=== PATIENT | male | born 1965 | race Caucasian/White ===

== ENCOUNTER → 2022-09-11 11:31 | Outpatient (RCR) | payer OTHER, MEDICAID, SELFPAY ==
--- NOTE | 2021-05-30 15:16 | PT.OIE ---
Current Diagnoses Other chronic pain (05/30/21) Pain in left shoulder (05/30/21) Abnormal posture (05/30/21) Visit Care Team Role Provider Type Jon Fu MD Attending Provider Non-Staff Primary Care Provider Referring Provider Specialty: Family Practice Address: [address] , [place], [address] Email: Physical Therapy Initial Evaluation PT-OP-A Visit Information Start: 05/30/21 12:36 Freq: Status: Active Protocol: Document 05/30/21 14:30 AW (Rec: 05/30/21 17:36 AW [email or web address]) Out-Patient Physical Therapy Visit Information Visit Information Visit Type Initial Evaluation Visit Start Time 13:45 Visit Stop Time 14:30 Total Visit Minutes 45 Visit Number 1 Number of COMPUGRAPH OPERATOR Visits 0 Evaluation Information Evaluation Date 05/30/21 PT-OP-B Current Condition Start: 05/30/21 12:36 Freq: Status: Active Protocol: Document 05/30/21 14:30 AW (Rec: 05/30/21 12:46 AW [email or web address]) Current Condition History of Current Condition Onset Date couple of months Current Complaints left shoulder pain, low back pain History of Current Condition Russ reports low back pain for the past few months which is worse on the left side and seems fairly irritable to him. He wakes up in pain. Rest and ice help. 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 He is also here for left shoulder pain which has been bothering him for a while. He has history of right A/C separation which is visible but no longer causes him pain. Left shoulder pain has been disturbing his sleep. He hurts more on the back of his shoulder. He can not throw anything or cast a fishing line. He has been having trouble getting dressed since his shoulder hurts when his arm his behind his back. He denies trauma Prior Treatments and Tests - Prior PT for right shoulder with good outcomes Future Testing and Treatments Planned - Referral to sleep medicine for CHARLI Developmental History Developmental History History NSTEMI, PTSD Treatment Goals Patient/Caregiver Goals Pt would like to be able to sleep on left side, to be able to throw a ball, to be able to cast a fishing line with left hand, and be able to dress himself with less pain. PT-OP-C Subjective Start: 05/30/21 12:36 Freq: Status: Active Protocol: Document 05/30/21 14:30 AW (Rec: 05/30/21 17:36 AW [email or web address]) OP-PT Subjective Patient Comments Patient Comments I'd like to be able to cast a fishing line or throw a ball without pain. Patient Questionnaires Quick Dash- Upper Extremity Quick Dash UE Score 30 Quick Dash UE Impairment 20 to 39% Impaired (Score 20- 39) OP-PT Pain Assessment Pain Assessment Grid Paper Pain Assessment Grid Completed Yes: Scanned to EMR PT-OP-F Manual Assessment Start: 05/30/21 12:36 Freq: Status: Active Protocol: Document 05/30/21 14:30 AW (Rec: 05/30/21 17:49 AW [email or web address]) Manual Assessments Soft Tissue Assessment Soft Tissue Mobility Assessment Moderate density and trigger points appreciable in left infraspinatus, teres minor. Increased density bilateral upper traps. Joint Mobility Assessment Joint Mobility Assessment Posterior and inferior GH glides similar side to side without appreciable restriction. PT-OP-J Posture/Palpation/Skin Start: 05/30/21 12:36 Freq: Status: Active Protocol: Document 05/30/21 14:30 AW (Rec: 05/30/21 17:49 AW [email or web address]) Posture Evaluation Position Sitting Evaluation View Lateral Head/C-Spine Posture Forward Head Shoulder Posture (L) Rounded,(R) Rounded Scapula Posture (L) Protracted,(R) Protracted Arm Posture (L) Internally Rotated,(R) Internally Rotated PT-OP-K Range of Motion Start: 05/30/21 12:36 Freq: Status: Active Protocol: Document 05/30/21 14:30 AW (Rec: 05/30/21 17:49 AW [email or web address]) Shoulder Goniometric Range of Motion Shoulder Left Active Testing Position Sitting Flexion 143 Extension 40 Abduction 141 External Rotation at 0 degrees Abduction 47 Internal Rotation Behind Back (text) L4 midline Right Active Testing Position Sitting Flexion 158 Extension 40 Abduction 155 External Rotation at 0 degrees Abduction 70 Internal Rotation Behind Back (text) T7 midline Elbow/Forearm Range of Motion Elbow/Forearm ROM Limitations Comments All elbow ROM WNL PT-OP-L Special Tests Start: 05/30/21 12:36 Freq: Status: Active Protocol: Document 05/30/21 14:30 AW (Rec: 05/30/21 17:49 AW [email or web address]) Special Tests Cervical Spine Special Tests Spurling's Test Test Results negative bilaterally Shoulder Special Tests Cochran Kyle Impingement Test Results positive left Infraspinatus MMT Test Results positive left Comments Vague pain with resisted infraspinatus testing on left. No pain on right. Painful Arc Test Results postive left Comments Pain reproduced 80-110 degrees abduction Drop Arm Rotator Cuff Test Results pt able to hold position without pain PT-OP-M Strength Start: 05/30/21 12:36 Freq: Status: Active Protocol: Document 05/30/21 14:30 AW (Rec: 05/30/21 17:49 AW [email or web address]) Scapula Strength Scapula Manual Muscle Testing bilateral Elevation (C4) 5 Normal Adduction 4+ Good+ Abduction 4+ Good+ Depression 4 Good Shoulder Strength Shoulder Manual Muscle Testing Left Flexion 4+ Good+ Extension 5 Normal Abduction (C5) 4+ Good+ External Rotation 4 Good Internal Rotation 4+ Good+ Comments Resisted flexion, abduction, and ER reproduce pain. Right Flexion 5 Normal Extension 5 Normal Abduction (C5) 5 Normal External Rotation 5 Normal Internal Rotation 5 Normal PT-OP-Q Treatments Start: 05/30/21 12:36 Freq: Status: Active Protocol: Document 05/30/21 14:30 AW (Rec: 05/30/21 17:54 AW [email or web address]) Therapeutic Exercises Sitting Exercises UT stretch Sitting Exercise Name UT stretch Side bilateral Reps/Minutes 30 SH x 2 Comments cued posture, ear toward ceiling cervical retraction Sitting Exercise Name cervical retraction Reps/Minutes x10 Comments cued for upright posture, scap retraction scapular retraction Sitting Exercise Name scapular retraction Side bilateral Reps/Minutes x15 Comments cued neutral spine as pt tends to extend at T/L junction PT-OP-T Assessment and Plan Start: 05/30/21 12:36 Freq: Status: Active Protocol: Document 05/30/21 14:30 AW (Rec: 05/30/21 18:07 AW [email or web address]) Physical Therapy Assessment Rehab Potential Rehabilitation Potential Excellent Evaluation Complexity Number of Personal Factors/Comorbidities 1-2 Number of Body Systems Impaired 1-2 Clinical Presentation at Evaluation Stable Impairments Impairments Functional Activities,Pain, Posture,ROM,Soft Tissue Mobility,Strength Goals Four Impairment left shoulder pain Short Term Goal (STG) Pt will improve left shoulder internal rotation ROM to L1 or higher (at midline) without increase in baseline pain. STG Duration 4 weeks - 06/27/21 Tie Man Goal (LTG) Pt will throw a ball or cast a fishing reel with left arm without increase in baseline pain for return to recreational activities. LTG Duration 2 months - 08/04/21 Three Impairment QuickDASH Intermediate Goal (LTG) Pt will improve QuickDASH from 30% impairment to 15% or less as a measure of improvement in daily activities. LTG Duration 2 months - 08/04/21 Two Impairment ROM Tie Man Goal (LTG) Pt will achieve active ROM of left shoulder equal to that of right shoulder for improvement in ADL performance . LTG Duration 2 months - 08/04/21 One Impairment lacks HEP Short Term Goal (STG) Pt will be independent with HEP to support therapy services provided in clinic. STG Duration 4 weeks - 06/27/21 Tie Man Goal (LTG) Pt will be independent with HEP for postural education and pain management for left shoulder. LTG Duration 2 months - 08/04/21 Assessment Summary Assessment Russ is a left-hand dominant 56 yo man who attends outpatient physical therapy with complaints of left shoulder pain and low back pain. His current referral is for shoulder only and pt understands he will need his referring provider to add low back pain to referral for more specific treatment. Pt presents with ROM limitations, positive painful arc, painful external rotation MMT, and positive Cochran-Kyle suggestive of impingement syndrome. Pt would benefit from physical therapy to address these impairments, to prevent further injury, and to promote full return to work and recreational activities. Physical Therapy Plan Frequency and Duration Frequency of Treatment 1-2x/week Duration of Treatment 2 months Plan of Care Start Date 05/30/21 Plan of Care End Date 08/04/21 Therapeutic Interventions Therapeutic Interventions Home Exercise Program,Joint Mobilizations,Manual Therapy, Neuromuscular Re-education, Patient/Caregiver Education, Self-Care/Home Management,Soft Tissue Mobilization,Taping, Therapeutic Activities, Therapeutic Exercises Modalities Cold Pack/Ice Massage,Electric Stimulation,Hot Packs Next Visit Focus/Plan Next Note Type Treatment Note Next Visit Plan assess lumbar spine and revise POC if authorization is updated; review initial HEP; introduce pec stretch, AAROM, isometric shoulder strengthening; reinforce activity modification
--- NOTE | 2021-05-30 15:17 | PT.OPPOC ---
Physical, Occupational & Speech Therapy At [facility] Current Diagnoses Other chronic pain (05/30/21) Pain in left shoulder (05/30/21) Abnormal posture (05/30/21) Visit Care Team Role Provider Type Jon Fu MD Attending Provider Non-Staff Primary Care Provider Referring Provider Specialty: Family Practice Address: [address] [place] [address], [place], [address] Email: Plan Of Care PT-OP-T Assessment and Plan Start: 05/30/21 12:36 Freq: Status: Active Protocol: Document 05/30/21 14:30 AW (Rec: 05/30/21 18:07 AW [email or web address]) Physical Therapy Assessment Rehab Potential Rehabilitation Potential Excellent Evaluation Complexity Number of Personal Factors/Comorbidities 1-2 Number of Body Systems Impaired 1-2 Clinical Presentation at Evaluation Stable Impairments Impairments Functional Activities,Pain, Posture,ROM,Soft Tissue Mobility,Strength Goals Four Impairment left shoulder pain Short Term Goal (STG) Pt will improve left shoulder internal rotation ROM to L1 or higher (at midline) without increase in baseline pain. STG Duration 4 weeks - 06/27/21 Thermal Cutter Helper Goal (LTG) Pt will throw a ball or cast a fishing reel with left arm without increase in baseline pain for return to recreational activities. LTG Duration 2 months - 08/04/21 Three Impairment QuickDASH Long-Term Goal (LTG) Pt will improve QuickDASH from 30% impairment to 15% or less as a measure of improvement in daily activities. LTG Duration 2 months - 08/04/21 Two Impairment ROM Thermal Cutter Helper Goal (LTG) Pt will achieve active ROM of left shoulder equal to that of right shoulder for improvement in ADL performance . LTG Duration 2 months - 08/04/21 One Impairment lacks HEP Short Term Goal (STG) Pt will be independent with HEP to support therapy services provided in clinic. STG Duration 4 weeks - 06/27/21 Thermal Cutter Helper Goal (LTG) Pt will be independent with HEP for postural education and pain management for left shoulder. LTG Duration 2 months - 08/04/21 Assessment Summary Assessment Russ is a left-hand dominant 56 yo man who attends outpatient physical therapy with complaints of left shoulder pain and low back pain. His current referral is for shoulder only and pt understands he will need his referring provider to add low back pain to referral for more specific treatment. Pt presents with ROM limitations, positive painful arc, painful external rotation MMT, and positive Cochran-Kyle suggestive of impingement syndrome. Pt would benefit from physical therapy to address these impairments, to prevent further injury, and to promote full return to work and recreational activities. Physical Therapy Plan Frequency and Duration Frequency of Treatment 1-2x/week Duration of Treatment 2 months Plan of Care Start Date 05/30/21 Plan of Care End Date 08/04/21 Therapeutic Interventions Therapeutic Interventions Home Exercise Program,Joint Mobilizations,Manual Therapy, Neuromuscular Re-education, Patient/Caregiver Education, Self-Care/Home Management,Soft Tissue Mobilization,Taping, Therapeutic Activities, Therapeutic Exercises Modalities Cold Pack/Ice Massage,Electric Stimulation,Hot Packs Next Visit Focus/Plan Next Note Type Treatment Note Next Visit Plan assess lumbar spine and revise POC if authorization is updated; review initial HEP; introduce pec stretch, AAROM, isometric shoulder strengthening; reinforce activity modification Plan of Care Dates Plan of Care Start Date 05/30/21 Plan of Care End Date 08/04/21 Electronically Signed by: Kristen Valentine PT 05/31/21 0634 Please Sign and Return: I have reviewed this Plan of Care and certify that the skilled therapy services above are required to meet the patient?s needs. Physician Signature Date Printed Name and Credentials Clinical Instructor Signature Printed Name and Credentials
--- NOTE | 2021-06-01 17:30 | PT.OPPOC ---
Physical, Occupational & Speech Therapy At [facility] Current Diagnoses Other chronic pain (06/01/21) Pain in left shoulder (06/01/21) Abnormal posture (06/01/21) Visit Care Team Role Provider Type Jon Fu MD Attending Provider Non-Staff Primary Care Provider Referring Provider Specialty: Family Practice Address: [address] [place] [address], [place], [address] Email: Plan Of Care PT-OP-T Assessment and Plan Start: 05/30/21 12:36 Freq: Status: Active Protocol: Document 06/01/21 14:30 AW (Rec: 06/01/21 17:30 AW [email or web address]) Physical Therapy Assessment Rehab Potential Rehabilitation Potential Excellent Evaluation Complexity Number of Personal Factors/Comorbidities 1-2 Number of Body Systems Impaired 1-2 Clinical Presentation at Evaluation Stable Impairments Impairments Balance,Functional Activities, Gait,Pain,Posture,ROM,Soft Tissue Mobility,Strength Goals Seven Impairment sit to stand Short Term Goal (STG) Pt will complete 5 Time Sit to felt finisher 14 seconds or less without UE and without increase in baseline pain. STG Duration 4 weeks - 06/27/21 Intellectual Property Paralegal Goal (LTG) Pt will complete 15 reps in 30 Second Sit to Stand Test without UE and without increase in baseline pain. LTG Duration 2 months - 08/04/21 Six Impairment low back pain Short Term Goal (STG) Pt will tolerate sitting 60 minutes to improve driving tolerance. 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 LTG Duration 2 months - 08/04/21 Five Impairment balance Short Term Goal (STG) Pt will improve SLS to 30 seconds bilaterally STG Duration 4 weeks - 06/27/21 Four Impairment left shoulder pain Short Term Goal (STG) Pt will improve left shoulder internal rotation ROM to L1 or higher (at midline) without increase in baseline pain. STG Duration 4 weeks - 06/27/21 Mcfp Goal (LTG) Pt will throw a ball or cast a fishing reel with left arm without increase in baseline pain for return to recreational activities. LTG Duration 2 months - 08/04/21 Three Impairment QuickDASH Mcfp Goal (LTG) Pt will improve QuickDASH from 30% impairment to 15% or less as a measure of improvement in daily activities. LTG Duration 2 months - 08/04/21 Two Impairment ROM Mcfp Goal (LTG) Pt will achieve active ROM of left shoulder equal to that of right shoulder for improvement in ADL performance . LTG Duration 2 months - 08/04/21 One Impairment lacks HEP Short Term Goal (STG) Pt will be independent with HEP to support therapy services provided in clinic. STG Duration 4 weeks - 06/27/21 Mcfp Goal (LTG) Pt will be independent with HEP for postural education and pain management for left shoulder. LTG Duration 2 months - 08/04/21 Assessment Summary Assessment Assessed for back pain today and introduced gentle lumbar ROM and core stability. Updated plan of care to include back pain goals. Pt tends to over-exert with all exercises and will need vigilance in this regard. Physical Therapy Plan Frequency and Duration Frequency of Treatment 1-2x/week Duration of Treatment 2 months Plan of Care Start Date 05/30/21 Plan of Care End Date 08/04/21 Therapeutic Interventions Therapeutic Interventions Balance Training,Gait Training ,Home Exercise Program,Joint Mobilizations,Manual Therapy, Neuromuscular Re-education, Patient/Caregiver Education, Self-Care/Home Management,Soft Tissue Mobilization,Taping, Therapeutic Activities, Therapeutic Exercises Modalities Cold Pack/Ice Massage,Electric Stimulation,Hot Packs Next Visit Focus/Plan Next Note Type Treatment Note Next Visit Plan review initial HEP; introduce pec stretch, AAROM, isometric shoulder strengthening; reinforce activity modification Plan of Care Dates Plan of Care Start Date 05/30/21 Plan of Care End Date 08/04/21 Electronically Signed by: Kristen Valentine PT 06/01/21 [id number] Please Sign and Return: I have reviewed this Plan of Care and certify that the skilled therapy services above are required to meet the patient?s needs. Physician Signature Date Printed Name and Credentials Clinical Instructor Signature Printed Name and Credentials
--- NOTE | 2021-06-01 17:31 | PT.OTN ---
Current Diagnoses Other chronic pain (06/01/21) Pain in left shoulder (06/01/21) Abnormal posture (06/01/21) Physical Therapy Treatment Note PT-OP-A Visit Information Start: 05/30/21 12:36 Freq: Status: Active Protocol: Document 06/01/21 13:42 AW (Rec: 06/01/21 14:32 AW [id number]) Out-Patient Physical Therapy Visit Information Visit Information Visit Type Treatment Note Visit Start Time 13:45 Visit Stop Time 14:30 Total Visit Minutes 45 Visit Number 2 Number of REFERRAL CLERK Visits 0 Evaluation Information Evaluation Date 05/30/21 PT-OP-B Current Condition Start: 05/30/21 12:36 Freq: Status: Active Protocol: Document 05/30/21 14:30 AW (Rec: 05/30/21 12:46 AW [email or web address]) Current Condition History of Current Condition Onset Date couple of months Current Complaints left shoulder pain, low back pain History of Current Condition Russ reports low back pain for the past few months which is worse on the left side and seems fairly irritable to him. He wakes up in pain. Rest and ice help. 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 He is also here for left shoulder pain which has been bothering him for a while. He has history of right A/C separation which is visible but no longer causes him pain. Left shoulder pain has been disturbing his sleep. He hurts more on the back of his shoulder. He can not throw anything or cast a fishing line. He has been having trouble getting dressed since his shoulder hurts when his arm his behind his back. He denies trauma Prior Treatments and Tests - Prior PT for right shoulder with good outcomes Future Testing and Treatments Planned - Referral to sleep medicine for CHARLI Developmental History Developmental History History NSTEMI, PTSD Treatment Goals Patient/Caregiver Goals Pt would like to be able to sleep on left side, to be able to throw a ball, to be able to cast a fishing line with left hand, and be able to dress himself with less pain. PT-OP-C Subjective Start: 05/30/21 12:36 Freq: Status: Active Protocol: Document 06/01/21 13:42 AW (Rec: 06/01/21 14:32 AW [id number]) OP-PT Subjective Patient Comments Patient Comments Referring provider added back pain code. PT-OP-D Balance Start: 05/30/21 12:36 Freq: Status: Active Protocol: Document 06/01/21 14:30 AW (Rec: 06/01/21 17:21 AW [email or web address]) Balance Tests Single Limb Standing Single Limb- Right 25 sec steady Single Limb- Left 20 sec unsteady PT-OP-F Manual Assessment Start: 05/30/21 12:36 Freq: Status: Active Protocol: Document 05/30/21 14:30 AW (Rec: 05/30/21 17:49 AW [email or web address]) Manual Assessments Soft Tissue Assessment Soft Tissue Mobility Assessment Moderate density and trigger points appreciable in left infraspinatus, teres minor. Increased density bilateral upper traps. Joint Mobility Assessment Joint Mobility Assessment Posterior and inferior GH glides similar side to side without appreciable restriction. PT-OP-J Posture/Palpation/Skin Start: 05/30/21 12:36 Freq: Status: Active Protocol: Document 06/01/21 14:30 AW (Rec: 06/01/21 17:21 AW [email or web address]) Posture Evaluation Position Sitting Evaluation View Lateral Head/C-Spine Posture Forward Head L-Spine Posture Increased Lordosis Shoulder Posture (L) Rounded,(R) Rounded Scapula Posture (L) Protracted,(R) Protracted Arm Posture (L) Internally Rotated,(R) Internally Rotated Pelvis Posture Anteriorly Tilted Weight Distribution Weight Shifted Right,Weight Shifted Posterior Palpation Assessment Location lumbar paraspinals Palpation Location lumbar paraspinals Palpation Findings Soft Tissue Tightness,Muscle Guarding,Tenderness Palpation Details right more affected than left PT-OP-K Range of Motion Start: 05/30/21 12:36 Freq: Status: Active Protocol: Document 06/01/21 14:30 AW (Rec: 06/01/21 17:21 AW [email or web address]) Lumbar Spine Range of Motion Lumbar Spine Active Degrees Testing Position Standing Flexion 55 Extension 13 Comments Positive Yohana's sign. Rotation WFL bilaterally. Increased pain with left rotation. Side bend with fingertips to knee joint bilaterally. PT-OP-L Special Tests Start: 05/30/21 12:36 Freq: Status: Active Protocol: Document 05/30/21 14:30 AW (Rec: 05/30/21 17:49 AW [email or web address]) Special Tests Cervical Spine Special Tests Spurling's Test Test Results negative bilaterally Shoulder Special Tests Cochran Kyle Impingement Test Results positive left Infraspinatus MMT Test Results positive left Comments Vague pain with resisted infraspinatus testing on left. No pain on right. Painful Arc Test Results postive left Comments Pain reproduced 80-110 degrees abduction Drop Arm Rotator Cuff Test Results pt able to hold position without pain PT-OP-M Strength Start: 05/30/21 12:36 Freq: Status: Active Protocol: Document 06/01/21 14:30 AW (Rec: 06/01/21 17:21 AW [email or web address]) Hip Strength Hip Manual Muscle Testing Left Flexion (L2) 4 Good Extension (S1) 4- Good- Abduction 4+ Good+ Adduction 4 Good External Rotation 4+ Good+ Internal Rotation 4+ Good+ Comments Pain with flexion and rotation . Right Flexion (L2) 4+ Good+ Extension (S1) 4 Good Abduction 4 Good Adduction 5 Normal External Rotation 5 Normal Internal Rotation 5 Normal Knee Strength Knee Manual Muscle Testing B Flexion (S2) 5 Normal Extension (L3) 5 Normal Ankle/Foot Strength Ankle and Foot Manual Muscle Testing B Dorsiflexion (L4) 5 Normal Plantarflexion (S1) 4+ Good+ PT-OP-Q Treatments Start: 05/30/21 12:36 Freq: Status: Active Protocol: Document 06/01/21 13:42 AW (Rec: 06/01/21 14:32 AW [id number]) Therapeutic Exercises Supine Exercises LTR Supine Exercise Name LTR Side bilateral Reps/Minutes 3 min Comments cued pain free range TA awareness Supine Exercise Name BKFO Side bilateral Resistance alternating Reps/Minutes 2x 10 Comments cued LORRI, PPT Sitting Exercises UT stretch Sitting Exercise Name UT stretch Side bilateral Reps/Minutes 30 SH x 2 Comments cued posture, ear toward ceiling cervical retraction Sitting Exercise Name cervical retraction Reps/Minutes x10 Comments discussed not overdoing, <50% max mm recruitment scapular retraction Sitting Exercise Name scapular retraction Side bilateral Reps/Minutes x15 Comments cued neutral spine as pt tends to extend at T/L junction PT-OP-T Assessment and Plan Start: 05/30/21 12:36 Freq: Status: Active Protocol: Document 06/01/21 14:30 AW (Rec: 06/01/21 17:30 AW [email or web address]) Physical Therapy Assessment Rehab Potential Rehabilitation Potential Excellent Evaluation Complexity Number of Personal Factors/Comorbidities 1-2 Number of Body Systems Impaired 1-2 Clinical Presentation at Evaluation Stable Impairments Impairments Balance,Functional Activities, Gait,Pain,Posture,ROM,Soft Tissue Mobility,Strength Goals Seven Impairment sit to stand Short Term Goal (STG) Pt will complete 5 Time Sit to pressure vessel inspector 14 seconds or less without UE and without increase in baseline pain. STG Duration 4 weeks - 06/27/21 Skilled Nursing Goal (LTG) Pt will complete 15 reps in 30 Second Sit to Stand Test without UE and without increase in baseline pain. LTG Duration 2 months - 08/04/21 Six Impairment low back pain Short Term Goal (STG) Pt will tolerate sitting 60 minutes to improve driving tolerance. STG Duration 4 weeks - 06/27/21 Skilled Nursing Goal (LTG) Pt will tolerate kneeling 30 minutes at a time for oz[employer] activities. LTG Duration 2 months - 08/04/21 Five Impairment balance Short Term Goal (STG) Pt will improve SLS to 30 seconds bilaterally STG Duration 4 weeks - 06/27/21 Four Impairment left shoulder pain Short Term Goal (STG) Pt will improve left shoulder internal rotation ROM to L1 or higher (at midline) without increase in baseline pain. STG Duration 4 weeks - 06/27/21 Skilled Nursing Goal (LTG) Pt will throw a ball or cast a fishing reel with left arm without increase in baseline pain for return to recreational activities. LTG Duration 2 months - 08/04/21 Three Impairment QuickDASH Skilled Nursing Goal (LTG) Pt will improve QuickDASH from 30% impairment to 15% or less as a measure of improvement in daily activities. LTG Duration 2 months - 08/04/21 Two Impairment ROM Lav Crewman Goal (LTG) Pt will achieve active ROM of left shoulder equal to that of right shoulder for improvement in ADL performance . LTG Duration 2 months - 08/04/21 One Impairment lacks HEP Short Term Goal (STG) Pt will be independent with HEP to support therapy services provided in clinic. STG Duration 4 weeks - 06/27/21 Skilled Nursing Goal (LTG) Pt will be independent with HEP for postural education and pain management for left shoulder. LTG Duration 2 months - 08/04/21 Assessment Summary Assessment Assessed for back pain today and introduced gentle lumbar ROM and core stability. Updated plan of care to include back pain goals. Pt tends to over-exert with all exercises and will need vigilance in this regard. Physical Therapy Plan Frequency and Duration Frequency of Treatment 1-2x/week Duration of Treatment 2 months Plan of Care Start Date 05/30/21 Plan of Care End Date 08/04/21 Therapeutic Interventions Therapeutic Interventions Balance Training,Gait Training ,Home Exercise Program,Joint Mobilizations,Manual Therapy, Neuromuscular Re-education, Patient/Caregiver Education, Self-Care/Home Management,Soft Tissue Mobilization,Taping, Therapeutic Activities, Therapeutic Exercises Modalities Cold Pack/Ice Massage,Electric Stimulation,Hot Packs Next Visit Focus/Plan Next Note Type Treatment Note Next Visit Plan review initial HEP; introduce pec stretch, AAROM, isometric shoulder strengthening; reinforce activity modification
--- NOTE | 2021-06-07 16:46 | PT.OTN ---
Current Diagnoses Other chronic pain (06/07/21) Pain in left shoulder (06/07/21) Abnormal posture (06/07/21) Physical Therapy Treatment Note PT-OP-A Visit Information Start: 05/30/21 12:36 Freq: Status: Active Protocol: Document 06/07/21 14:28 SAK (Rec: 06/07/21 15:16 SAK [id number]) Out-Patient Physical Therapy Visit Information Visit Information Visit Start Time 14:30 Visit Stop Time 15:15 Total Visit Minutes 45 Visit Number 3 Evaluation Information Evaluation Date 05/30/21 PT-OP-B Current Condition Start: 05/30/21 12:36 Freq: Status: Active Protocol: Document 06/07/21 14:28 SAK (Rec: 06/07/21 15:16 SAK [id number]) Current Condition History of Current Condition History of Current Condition Russ reports low back pain for the past few months which is worse on the left side and seems fairly irritable to him. He wakes up in pain. Rest and ice help. 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 He is also here for left shoulder pain which has been bothering him for a while. He has history of right A/C separation which is visible but no longer causes him pain. Left shoulder pain has been disturbing his sleep. He hurts more on the back of his shoulder. He can not throw anything or cast a fishing line. He has been having trouble getting dressed since his shoulder hurts when his arm his behind his back. He denies trauma Treatment Goals Patient/Caregiver Goals Pt would like to be able to sleep on left side, to be able to throw a ball, to be able to cast a fishing line with left hand, and be able to dress himself with less pain. PT-OP-C Subjective Start: 05/30/21 12:36 Freq: Status: Active Protocol: Document 06/01/21 13:42 AW (Rec: 06/01/21 14:32 AW [id number]) OP-PT Subjective Patient Comments Patient Comments Referring provider added back pain code. PT-OP-D Balance Start: 05/30/21 12:36 Freq: Status: Active Protocol: Document 06/01/21 14:30 AW (Rec: 06/01/21 17:21 AW [email or web address]) Balance Tests Single Limb Standing Single Limb- Right 25 sec steady Single Limb- Left 20 sec unsteady PT-OP-F Manual Assessment Start: 05/30/21 12:36 Freq: Status: Active Protocol: Document 05/30/21 14:30 AW (Rec: 05/30/21 17:49 AW [email or web address]) Manual Assessments Soft Tissue Assessment Soft Tissue Mobility Assessment Moderate density and trigger points appreciable in left infraspinatus, teres minor. Increased density bilateral upper traps. Joint Mobility Assessment Joint Mobility Assessment Posterior and inferior GH glides similar side to side without appreciable restriction. PT-OP-J Posture/Palpation/Skin Start: 05/30/21 12:36 Freq: Status: Active Protocol: Document 06/01/21 14:30 AW (Rec: 06/01/21 17:21 AW [email or web address]) Posture Evaluation Position Sitting Evaluation View Lateral Head/C-Spine Posture Forward Head L-Spine Posture Increased Lordosis Shoulder Posture (L) Rounded,(R) Rounded Scapula Posture (L) Protracted,(R) Protracted Arm Posture (L) Internally Rotated,(R) Internally Rotated Pelvis Posture Anteriorly Tilted Weight Distribution Weight Shifted Right,Weight Shifted Posterior Palpation Assessment Location lumbar paraspinals Palpation Location lumbar paraspinals Palpation Findings Soft Tissue Tightness,Muscle Guarding,Tenderness Palpation Details right more affected than left PT-OP-K Range of Motion Start: 05/30/21 12:36 Freq: Status: Active Protocol: Document 06/01/21 14:30 AW (Rec: 06/01/21 17:21 AW [email or web address]) Lumbar Spine Range of Motion Lumbar Spine Active Degrees Testing Position Standing Flexion 55 Extension 13 Comments Positive Wassaic's sign. Rotation WFL bilaterally. Increased pain with left rotation. Side bend with fingertips to knee joint bilaterally. PT-OP-L Special Tests Start: 05/30/21 12:36 Freq: Status: Active Protocol: Document 05/30/21 14:30 AW (Rec: 05/30/21 17:49 AW [email or web address]) Special Tests Cervical Spine Special Tests Spurling's Test Test Results negative bilaterally Shoulder Special Tests Cochran Kyle Impingement Test Results positive left Infraspinatus MMT Test Results positive left Comments Vague pain with resisted infraspinatus testing on left. No pain on right. Painful Arc Test Results postive left Comments Pain reproduced 80-110 degrees abduction Drop Arm Rotator Cuff Test Results pt able to hold position without pain PT-OP-M Strength Start: 05/30/21 12:36 Freq: Status: Active Protocol: Document 06/01/21 14:30 AW (Rec: 06/01/21 17:21 AW [email or web address]) Hip Strength Hip Manual Muscle Testing Left Flexion (L2) 4 Good Extension (S1) 4- Good- Abduction 4+ Good+ Adduction 4 Good External Rotation 4+ Good+ Internal Rotation 4+ Good+ Comments Pain with flexion and rotation . Right Flexion (L2) 4+ Good+ Extension (S1) 4 Good Abduction 4 Good Adduction 5 Normal External Rotation 5 Normal Internal Rotation 5 Normal Knee Strength Knee Manual Muscle Testing B Flexion (S2) 5 Normal Extension (L3) 5 Normal Ankle/Foot Strength Ankle and Foot Manual Muscle Testing B Dorsiflexion (L4) 5 Normal Plantarflexion (S1) 4+ Good+ PT-OP-Q Treatments Start: 05/30/21 12:36 Freq: Status: Active Protocol: Document 06/07/21 14:28 SAK (Rec: 06/07/21 16:46 SAK [id number]) Cardio Equipment Recumbent Stepper (Sci-Fit) Duration (Minutes) 5 Resistance 1 Seat Position 10 Other legs only, cues for neutral posture, chin tuck. Therapeutic Exercises Supine Exercises LTR Supine Exercise Name LTR Side bilateral Reps/Minutes 3 min Comments cued pain free range, arms at sides for pec stretch TA awareness Supine Exercise Name BKFO Side bilateral Resistance alternating Reps/Minutes 2x 10 Comments cued LORRI, PPT Prone Exercises prone press-up Reps/Minutes 2x10 Comments reports feels good to spine Sitting Exercises cervical retraction Sitting Exercise Name cervical retraction Reps/Minutes x10 Comments discussed not overdoing, <50% max mm recruitment scapular retraction Sitting Exercise Name scapular retraction Side bilateral Reps/Minutes x15 Comments cued neutral spine as pt tends to extend at T/L junction Standing Exercises pec stretch Equipment Used doorway Reps/Minutes 2x30 shoulder isometrics Reps/Minutes 3x ea Comments all planes, cues for submaximal contraction,neutral posture wall posture Reps/Minutes 5x Comments verbal and tactile cues Manual Therapy Treatment Soft Tissue Mobilization thoracic paraspinals Mobilization Type Myofascial Release Intensity/Depth Moderate Body Position Prone Joint Mobilizations mid thoracic Joint T4-T9 Direction PA Grade II Body Position Prone Self-Care/Home Management Treatment Education Patient Education Home Exercise Program,Posture Other Education GH anatomy and mechanics, impingment: used shoulder model PT-OP-R Modalities Start: 05/30/21 12:36 Freq: Status: Active Protocol: Document 06/07/21 14:28 [facility] (Rec: 06/07/21 16:46 [facility] [id number]) Hot Pack/Cold Pack Treatment ice pack Location left shoulder Patient Position Hooklying PT-OP-T Assessment and Plan Start: 05/30/21 12:36 Freq: Status: Active Protocol: Document 06/07/21 14:28 [facility] (Rec: 06/07/21 15:16 [facility] [id number]) Physical Therapy Assessment Goals Seven Impairment sit to stand Short Term Goal (STG) Pt will complete 5 Time Sit to invasive cardiologist 14 seconds or less without UE and without increase in baseline pain. STG Duration 4 weeks - 06/27/21 Paving Rammer Goal (LTG) Pt will complete 15 reps in 30 Second Sit to Stand Test without UE and without increase in baseline pain. LTG Duration 2 months - 08/04/21 Six Impairment low back pain Short Term Goal (STG) Pt will tolerate sitting 60 minutes to improve driving tolerance. STG Duration 4 weeks - 06/27/21 Paving Rammer Goal (LTG) Pt will tolerate kneeling 30 minutes at a time for [employer] activities. LTG Duration 2 months - 08/04/21 Five Impairment balance Short Term Goal (STG) Pt will improve SLS to 30 seconds bilaterally STG Duration 4 weeks - 06/27/21 Four Impairment left shoulder pain Short Term Goal (STG) Pt will improve left shoulder internal rotation ROM to L1 or higher (at midline) without increase in baseline pain. STG Duration 4 weeks - 06/27/21 Paving Rammer Goal (LTG) Pt will throw a ball or cast a fishing reel with left arm without increase in baseline pain for return to recreational activities. LTG Duration 2 months - 08/04/21 Three Impairment QuickDASH Paving Rammer Goal (LTG) Pt will improve QuickDASH from 30% impairment to 15% or less as a measure of improvement in daily activities. LTG Duration 2 months - 08/04/21 Two Impairment ROM Halfway Goal (LTG) Pt will achieve active ROM of left shoulder equal to that of right shoulder for improvement in ADL performance . LTG Duration 2 months - 08/04/21 One Impairment lacks HEP Short Term Goal (STG) Pt will be independent with HEP to support therapy services provided in clinic. STG Duration 4 weeks - 06/27/21 Paving Rammer Goal (LTG) Pt will be independent with HEP for postural education and pain management for left shoulder. LTG Duration 2 months - 08/04/21 Assessment Summary Assessment REviewed HEP. Added shoulder isometrics and pec stretch ( doorway) to HEP. Discomfort only with shoulder ER isometric. Patient requires frequent verbal and cues for neutral posture and postural correction and to exercise in pain-free intensity. Wall posture exercise challenging for patient. Good tolerance for prone position. Decreased mobility in mid thoracic spine with PA's and palpable increase in muscle tension, decreased some with MFR and PA 's. Ice to left shoulder at end of treatment. May benefit from kinesiotape to left shoulder. Physical Therapy Plan Frequency and Duration Frequency of Treatment 1-2x/week Duration of Treatment 2 months Plan of Care Start Date 05/30/21 Plan of Care End Date 08/04/21 Therapeutic Interventions Therapeutic Interventions Balance Training,Gait Training ,Home Exercise Program,Joint Mobilizations,Manual Therapy, Neuromuscular Re-education, Patient/Caregiver Education, Self-Care/Home Management,Soft Tissue Mobilization,Taping, Therapeutic Activities, Therapeutic Exercises Modalities Cold Pack/Ice Massage,Electric Stimulation,Hot Packs Next Visit Focus/Plan Next Note Type Treatment Note Next Visit Plan Assess response to last session and additions to HEP. Progress ther ex as tolerated for core stabilization, left shoulder strengthening and stabilization, postural correction.
--- NOTE | 2021-06-22 15:00 | PT.OTN ---
Current Diagnoses Other chronic pain (06/22/21) Pain in left shoulder (06/22/21) Abnormal posture (06/22/21) Physical Therapy Treatment Note PT-OP-A Visit Information Start: 05/30/21 12:36 Freq: Status: Active Protocol: Document 06/22/21 09:40 AW (Rec: 06/22/21 09:46 AW [id number]) Out-Patient Physical Therapy Visit Information Visit Information Visit Type Treatment Note Visit Start Time 09:00 Visit Stop Time 09:40 Total Visit Minutes 40 Visit Number 2 Evaluation Information Evaluation Date 05/30/21 PT-OP-B Current Condition Start: 05/30/21 12:36 Freq: Status: Active Protocol: Document 06/07/21 14:28 SAK (Rec: 06/07/21 15:16 SAK [id number]) Current Condition History of Current Condition History of Current Condition Russ reports low back pain for the past few months which is worse on the left side and seems fairly irritable to him. He wakes up in pain. Rest and ice help. 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 He is also here for left shoulder pain which has been bothering him for a while. He has history of right A/C separation which is visible but no longer causes him pain. Left shoulder pain has been disturbing his sleep. He hurts more on the back of his shoulder. He can not throw anything or cast a fishing line. He has been having trouble getting dressed since his shoulder hurts when his arm his behind his back. He denies trauma Treatment Goals Patient/Caregiver Goals Pt would like to be able to sleep on left side, to be able to throw a ball, to be able to cast a fishing line with left hand, and be able to dress himself with less pain. PT-OP-C Subjective Start: 05/30/21 12:36 Freq: Status: Active Protocol: Document 06/22/21 09:40 AW (Rec: 06/22/21 09:46 AW [id number]) OP-PT Subjective Patient Comments Patient Comments Worked a 1/2 day two days ago and had back pain afterward. PT-OP-D Balance Start: 05/30/21 12:36 Freq: Status: Active Protocol: Document 06/01/21 14:30 AW (Rec: 06/01/21 17:21 AW [email or web address]) Balance Tests Single Limb Standing Single Limb- Right 25 sec steady Single Limb- Left 20 sec unsteady PT-OP-F Manual Assessment Start: 05/30/21 12:36 Freq: Status: Active Protocol: Document 05/30/21 14:30 AW (Rec: 05/30/21 17:49 AW [email or web address]) Manual Assessments Soft Tissue Assessment Soft Tissue Mobility Assessment Moderate density and trigger points appreciable in left infraspinatus, teres minor. Increased density bilateral upper traps. Joint Mobility Assessment Joint Mobility Assessment Posterior and inferior GH glides similar side to side without appreciable restriction. PT-OP-J Posture/Palpation/Skin Start: 05/30/21 12:36 Freq: Status: Active Protocol: Document 06/01/21 14:30 AW (Rec: 06/01/21 17:21 AW [email or web address]) Posture Evaluation Position Sitting Evaluation View Lateral Head/C-Spine Posture Forward Head L-Spine Posture Increased Lordosis Shoulder Posture (L) Rounded,(R) Rounded Scapula Posture (L) Protracted,(R) Protracted Arm Posture (L) Internally Rotated,(R) Internally Rotated Pelvis Posture Anteriorly Tilted Weight Distribution Weight Shifted Right,Weight Shifted Posterior Palpation Assessment Location lumbar paraspinals Palpation Location lumbar paraspinals Palpation Findings Soft Tissue Tightness,Muscle Guarding,Tenderness Palpation Details right more affected than left PT-OP-K Range of Motion Start: 05/30/21 12:36 Freq: Status: Active Protocol: Document 06/01/21 14:30 AW (Rec: 06/01/21 17:21 AW [email or web address]) Lumbar Spine Range of Motion Lumbar Spine Active Degrees Testing Position Standing Flexion 55 Extension 13 Comments Positive Yohana's sign. Rotation WFL bilaterally. Increased pain with left rotation. Side bend with fingertips to knee joint bilaterally. PT-OP-L Special Tests Start: 05/30/21 12:36 Freq: Status: Active Protocol: Document 05/30/21 14:30 AW (Rec: 05/30/21 17:49 AW [email or web address]) Special Tests Cervical Spine Special Tests Spurling's Test Test Results negative bilaterally Shoulder Special Tests Cochran Kyle Impingement Test Results positive left Infraspinatus MMT Test Results positive left Comments Vague pain with resisted infraspinatus testing on left. No pain on right. Painful Arc Test Results postive left Comments Pain reproduced 80-110 degrees abduction Drop Arm Rotator Cuff Test Results pt able to hold position without pain PT-OP-M Strength Start: 05/30/21 12:36 Freq: Status: Active Protocol: Document 06/01/21 14:30 AW (Rec: 06/01/21 17:21 AW [email or web address]) Hip Strength Hip Manual Muscle Testing Left Flexion (L2) 4 Good Extension (S1) 4- Good- Abduction 4+ Good+ Adduction 4 Good External Rotation 4+ Good+ Internal Rotation 4+ Good+ Comments Pain with flexion and rotation . Right Flexion (L2) 4+ Good+ Extension (S1) 4 Good Abduction 4 Good Adduction 5 Normal External Rotation 5 Normal Internal Rotation 5 Normal Knee Strength Knee Manual Muscle Testing B Flexion (S2) 5 Normal Extension (L3) 5 Normal Ankle/Foot Strength Ankle and Foot Manual Muscle Testing B Dorsiflexion (L4) 5 Normal Plantarflexion (S1) 4+ Good+ PT-OP-Q Treatments Start: 05/30/21 12:36 Freq: Status: Active Protocol: Document 06/22/21 09:40 AW (Rec: 06/22/21 09:46 AW [id number]) Cardio Equipment Recumbent Stepper (Sci-Fit) Duration (Minutes) 5 Resistance 2 Seat Position 10 Other legs only, cues for neutral posture, chin tuck. Therapeutic Exercises Supine Exercises scap protraction Supine Exercise Name scap protraction Side bilateral Resistance AROM Reps/Minutes x15 LTR Supine Exercise Name LTR Side bilateral Reps/Minutes 3 min Comments cued pain free range, arms at sides for pec stretch Prone Exercises prone press-up Prone Exercise Name added to HEP Reps/Minutes 6x10 Comments reports feels good to spine Sidelying Exercises open book Sidelying Exercise Name open book Side bilateral Reps/Minutes x10 each side Comments pt rotates ~70%; 3/10 in rhomboids on left Sitting Exercises thoracic rotation Sitting Exercise Name thoracic rotation Side bilateral Equipment Used pvc pipe behind elbows Reps/Minutes 2x10 UT stretch Sitting Exercise Name UT stretch Side bilateral Reps/Minutes 30 SH x 2 Comments cued posture, ear toward ceiling Standing Exercises shoulder isometrics Reps/Minutes 3x ea Comments all planes, cues for submaximal contraction,neutral posture Manual Therapy Treatment Soft Tissue Mobilization thoracic paraspinals Mobilization Type Myofascial Release Intensity/Depth Moderate Body Position Prone Joint Mobilizations scapulothoracic Joint scapulothoracic Direction inferior, medial Grade III Body Position Sidelying mid thoracic Joint T4-T9 Direction PA Grade II Body Position Prone Self-Care/Home Management Treatment Education Patient Education Home Exercise Program,Posture Other Education added prone press up to HEP PT-OP-R Modalities Start: 05/30/21 12:36 Freq: Status: Active Protocol: Document 06/07/21 14:28 SAK (Rec: 06/07/21 16:46 SAK [id number]) Hot Pack/Cold Pack Treatment ice pack Location left shoulder Patient Position Hooklying PT-OP-T Assessment and Plan Start: 05/30/21 12:36 Freq: Status: Active Protocol: Document 06/22/21 09:40 AW (Rec: 06/22/21 12:32 AW [email or web address]) Physical Therapy Assessment Goals Seven Impairment sit to stand Short Term Goal (STG) Pt will complete 5 Time 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 STG Duration 4 weeks - 06/27/21 Penitentiary Goal (LTG) Pt will complete 15 reps in 30 Second Sit to Stand Test without UE and without increase in baseline pain. LTG Duration 2 months - 08/04/21 Six Impairment low back pain Short Term Goal (STG) Pt will tolerate sitting 60 minutes to improve driving tolerance. STG Duration 4 weeks - 06/27/21 Penitentiary Goal (LTG) Pt will tolerate kneeling 30 minutes at a time for zoila activities. LTG Duration 2 months - 08/04/21 Five Impairment balance Short Term Goal (STG) Pt will improve SLS to 30 seconds bilaterally STG Duration 4 weeks - 06/27/21 Four Impairment left shoulder pain Short Term Goal (STG) Pt will improve left shoulder internal rotation ROM to L1 or higher (at midline) without increase in baseline pain. STG Duration 4 weeks - 06/27/21 Penitentiary Goal (LTG) Pt will throw a ball or cast a fishing reel with left arm without increase in baseline pain for return to recreational activities. LTG Duration 2 months - 08/04/21 Three Impairment QuickDASH Supervisor Grading Goal (LTG) Pt will improve QuickDASH from 30% impairment to 15% or less as a measure of improvement in daily activities. LTG Duration 2 months - 08/04/21 Two Impairment ROM Supervisor Grading Goal (LTG) Pt will achieve active ROM of left shoulder equal to that of right shoulder for improvement in ADL performance . LTG Duration 2 months - 08/04/21 One Impairment lacks HEP Short Term Goal (STG) Pt will be independent with HEP to support therapy services provided in clinic. STG Duration 4 weeks - 06/27/21 Supervisor Grading Goal (LTG) Pt will be independent with HEP for postural education and pain management for left shoulder. LTG Duration 2 months - 08/04/21 Assessment Summary Assessment Added thoracic mobility exercises today and assigned prone press up to HEP. Pt continues to require cues to work within pain-free range and to modulate intensity. Good response to thoracic mobility work. Feels less stiff. Physical Therapy Plan Frequency and Duration Frequency of Treatment 1-2x/week Duration of Treatment 2 months Plan of Care Start Date 05/30/21 Plan of Care End Date 08/04/21 Therapeutic Interventions Therapeutic Interventions Balance Training,Gait Training ,Home Exercise Program,Joint Mobilizations,Manual Therapy, Neuromuscular Re-education, Patient/Caregiver Education, Self-Care/Home Management,Soft Tissue Mobilization,Taping, Therapeutic Activities, Therapeutic Exercises Modalities Cold Pack/Ice Massage,Electric Stimulation,Hot Packs Next Visit Focus/Plan Next Note Type Treatment Note Next Visit Plan Assess response to last session and additions to HEP. Progress ther ex as tolerated for core stabilization, left shoulder strengthening and stabilization, postural correction.
--- NOTE | 2021-06-28 09:54 | PT.OTN ---
Current Diagnoses Other chronic pain (06/28/21) Pain in left shoulder (06/28/21) Abnormal posture (06/28/21) Physical Therapy Treatment Note PT-OP-A Visit Information Start: 05/30/21 12:36 Freq: Status: Active Protocol: Document 06/28/21 09:43 AW (Rec: 06/28/21 09:44 AW [id number]) Out-Patient Physical Therapy Visit Information Visit Information Visit Type Treatment Note Visit Start Time 09:00 Visit Stop Time 09:43 Total Visit Minutes 43 Evaluation Information Evaluation Date 05/30/21 PT-OP-B Current Condition Start: 05/30/21 12:36 Freq: Status: Active Protocol: Document 06/07/21 14:28 SAK (Rec: 06/07/21 15:16 SAK [id number]) Current Condition History of Current Condition History of Current Condition Russ reports low back pain for the past few months which is worse on the left side and seems fairly irritable to him. He wakes up in pain. Rest and ice help. 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 He is also here for left shoulder pain which has been bothering him for a while. He has history of right A/C separation which is visible but no longer causes him pain. Left shoulder pain has been disturbing his sleep. He hurts more on the back of his shoulder. He can not throw anything or cast a fishing line. He has been having trouble getting dressed since his shoulder hurts when his arm his behind his back. He denies trauma Treatment Goals Patient/Caregiver Goals Pt would like to be able to sleep on left side, to be able to throw a ball, to be able to cast a fishing line with left hand, and be able to dress himself with less pain. PT-OP-C Subjective Start: 05/30/21 12:36 Freq: Status: Active Protocol: Document 06/28/21 09:43 AW (Rec: 06/28/21 09:44 AW [id number]) OP-PT Subjective Patient Comments Patient Comments I think I'm overall feeling better. PT-OP-D Balance Start: 05/30/21 12:36 Freq: Status: Active Protocol: Document 06/01/21 14:30 AW (Rec: 06/01/21 17:21 AW [email or web address]) Balance Tests Single Limb Standing Single Limb- Right 25 sec steady Single Limb- Left 20 sec unsteady PT-OP-F Manual Assessment Start: 05/30/21 12:36 Freq: Status: Active Protocol: Document 05/30/21 14:30 AW (Rec: 05/30/21 17:49 AW [email or web address]) Manual Assessments Soft Tissue Assessment Soft Tissue Mobility Assessment Moderate density and trigger points appreciable in left infraspinatus, teres minor. Increased density bilateral upper traps. Joint Mobility Assessment Joint Mobility Assessment Posterior and inferior GH glides similar side to side without appreciable restriction. PT-OP-J Posture/Palpation/Skin Start: 05/30/21 12:36 Freq: Status: Active Protocol: Document 06/01/21 14:30 AW (Rec: 06/01/21 17:21 AW [email or web address]) Posture Evaluation Position Sitting Evaluation View Lateral Head/C-Spine Posture Forward Head L-Spine Posture Increased Lordosis Shoulder Posture (L) Rounded,(R) Rounded Scapula Posture (L) Protracted,(R) Protracted Arm Posture (L) Internally Rotated,(R) Internally Rotated Pelvis Posture Anteriorly Tilted Weight Distribution Weight Shifted Right,Weight Shifted Posterior Palpation Assessment Location lumbar paraspinals Palpation Location lumbar paraspinals Palpation Findings Soft Tissue Tightness,Muscle Guarding,Tenderness Palpation Details right more affected than left PT-OP-K Range of Motion Start: 05/30/21 12:36 Freq: Status: Active Protocol: Document 06/01/21 14:30 AW (Rec: 06/01/21 17:21 AW [email or web address]) Lumbar Spine Range of Motion Lumbar Spine Active Degrees Testing Position Standing Flexion 55 Extension 13 Comments Positive Alexandria's sign. Rotation WFL bilaterally. Increased pain with left rotation. Side bend with fingertips to knee joint bilaterally. PT-OP-L Special Tests Start: 05/30/21 12:36 Freq: Status: Active Protocol: Document 05/30/21 14:30 AW (Rec: 05/30/21 17:49 AW [email or web address]) Special Tests Cervical Spine Special Tests Spurling's Test Test Results negative bilaterally Shoulder Special Tests Cochran Kyle Impingement Test Results positive left Infraspinatus MMT Test Results positive left Comments Vague pain with resisted infraspinatus testing on left. No pain on right. Painful Arc Test Results postive left Comments Pain reproduced 80-110 degrees abduction Drop Arm Rotator Cuff Test Results pt able to hold position without pain PT-OP-M Strength Start: 05/30/21 12:36 Freq: Status: Active Protocol: Document 06/01/21 14:30 AW (Rec: 06/01/21 17:21 AW [email or web address]) Hip Strength Hip Manual Muscle Testing Left Flexion (L2) 4 Good Extension (S1) 4- Good- Abduction 4+ Good+ Adduction 4 Good External Rotation 4+ Good+ Internal Rotation 4+ Good+ Comments Pain with flexion and rotation . Right Flexion (L2) 4+ Good+ Extension (S1) 4 Good Abduction 4 Good Adduction 5 Normal External Rotation 5 Normal Internal Rotation 5 Normal Knee Strength Knee Manual Muscle Testing B Flexion (S2) 5 Normal Extension (L3) 5 Normal Ankle/Foot Strength Ankle and Foot Manual Muscle Testing B Dorsiflexion (L4) 5 Normal Plantarflexion (S1) 4+ Good+ PT-OP-Q Treatments Start: 05/30/21 12:36 Freq: Status: Active Protocol: Document 06/28/21 09:43 AW (Rec: 06/28/21 09:44 AW [id number]) Cardio Equipment Recumbent Stepper (Sci-Fit) Duration (Minutes) 5 Resistance 3 Seat Position 10 Other legs only, cues for neutral posture, chin tuck. Therapeutic Exercises Supine Exercises supine lower trap/posture press Supine Exercise Name supine lower trap/posture press Reps/Minutes 3SH x 10 scap protraction Supine Exercise Name scap protraction Side bilateral Resistance 2# Equipment Used db Reps/Minutes 2x15 Prone Exercises pendulum + row Prone Exercise Name scap retraction + GH extension Side bilateral Resistance 2# Equipment Used db Reps/Minutes 2x15 scap retraction + GH extension Prone Exercise Name scap retraction + GH extension Side bilateral Resistance AROM Reps/Minutes 2x15 Standing Exercises resisted row Standing Exercise Name resisted row Side bilateral Resistance TB2 Reps/Minutes x15 Manual Therapy Treatment Soft Tissue Mobilization thoracic paraspinals Body Location + left QL Mobilization Type Myofascial Release Intensity/Depth Moderate Body Position Prone Comments during prone ther ex Joint Mobilizations scapulothoracic Joint scapulothoracic Direction inferior, medial Grade III Body Position Sidelying Comments during ther ex mid thoracic Joint T4-T9 Direction PA Grade II Body Position Prone Self-Care/Home Management Treatment Education Patient Education Home Exercise Program,Posture Other Education Updated HEP. See copy scanned to EMR. 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 STG Duration 4 weeks - 06/27/21 Exercise Rider Goal (LTG) Pt will complete 15 reps in 30 Second Sit to Stand Test without UE and without increase in baseline pain. LTG Duration 2 months - 08/04/21 Six Impairment low back pain Short Term Goal (STG) Pt will tolerate sitting 60 minutes to improve driving tolerance. STG Duration 4 weeks - 06/27/21 Exercise Rider Goal (LTG) Pt will tolerate kneeling 30 minutes at a time for zoila activities. LTG Duration 2 months - 08/04/21 Five Impairment balance Short Term Goal (STG) Pt will improve SLS to 30 seconds bilaterally STG Duration 4 weeks - 06/27/21 Four Impairment left shoulder pain Short Term Goal (STG) Pt will improve left shoulder internal rotation ROM to L1 or higher (at midline) without increase in baseline pain. STG Duration 4 weeks - 06/27/21 Exercise Rider Goal (LTG) Pt will throw a ball or cast a fishing reel with left arm without increase in baseline pain for return to recreational activities. LTG Duration 2 months - 08/04/21 Three Impairment QuickDASH Exercise Rider Goal (LTG) Pt will improve QuickDASH from 30% impairment to 15% or less as a measure of improvement in daily activities. LTG Duration 2 months - 08/04/21 Two Impairment ROM Residential Goal (LTG) Pt will achieve active ROM of left shoulder equal to that of right shoulder for improvement in ADL performance . LTG Duration 2 months - 08/04/21 One Impairment lacks HEP Short Term Goal (STG) Pt will be independent with HEP to support therapy services provided in clinic. STG Duration 4 weeks - 06/27/21 Exercise Rider Goal (LTG) Pt will be independent with HEP for postural education and pain management for left shoulder. LTG Duration 2 months - 08/04/21 Assessment Summary Assessment Continued focus on thoracic mobility this date. Pt reports shoulder pain continues to improve. Fewer cues needed today for pain free range in all activities. Physical Therapy Plan Frequency and Duration Frequency of Treatment 1-2x/week Duration of Treatment 2 months Plan of Care Start Date 05/30/21 Plan of Care End Date 08/04/21 Therapeutic Interventions Therapeutic Interventions Balance Training,Gait Training ,Home Exercise Program,Joint Mobilizations,Manual Therapy, Neuromuscular Re-education, Patient/Caregiver Education, Self-Care/Home Management,Soft Tissue Mobilization,Taping, Therapeutic Activities, Therapeutic Exercises Modalities Cold Pack/Ice Massage,Electric Stimulation,Hot Packs Next Visit Focus/Plan Next Note Type Treatment Note Next Visit Plan Assess response to last session and additions to HEP. Progress ther ex as tolerated for core stabilization, left shoulder strengthening and stabilization, postural correction, thoracic mobility.
--- NOTE | 2021-07-06 12:53 | PT.OTN ---
Current Diagnoses Other chronic pain (07/06/21) Pain in left shoulder (07/06/21) Abnormal posture (07/06/21) Physical Therapy Treatment Note PT-OP-A Visit Information Start: 05/30/21 12:36 Freq: Status: Active Protocol: Document 07/06/21 09:43 AW (Rec: 07/06/21 09:44 AW [id number]) Out-Patient Physical Therapy Visit Information Visit Information Visit Type Treatment Note Visit Start Time 09:00 Visit Stop Time 09:43 Total Visit Minutes 43 Evaluation Information Evaluation Date 05/30/21 PT-OP-B Current Condition Start: 05/30/21 12:36 Freq: Status: Active Protocol: Document 06/07/21 14:28 SAK (Rec: 06/07/21 15:16 SAK [id number]) Current Condition History of Current Condition History of Current Condition Russ reports low back pain for the past few months which is worse on the left side and seems fairly irritable to him. He wakes up in pain. Rest and ice help. 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 He is also here for left shoulder pain which has been bothering him for a while. He has history of right A/C separation which is visible but no longer causes him pain. Left shoulder pain has been disturbing his sleep. He hurts more on the back of his shoulder. He can not throw anything or cast a fishing line. He has been having trouble getting dressed since his shoulder hurts when his arm his behind his back. He denies trauma Treatment Goals Patient/Caregiver Goals Pt would like to be able to sleep on left side, to be able to throw a ball, to be able to cast a fishing line with left hand, and be able to dress himself with less pain. PT-OP-C Subjective Start: 05/30/21 12:36 Freq: Status: Active Protocol: Document 07/06/21 09:43 AW (Rec: 07/06/21 09:44 AW [id number]) OP-PT Subjective Patient Comments Patient Comments Back feels better even with working every day. Shoulder is still feeling twingy especially when I try to hold something at arm's length. Resisted ER also hurts PT-OP-D Balance Start: 05/30/21 12:36 Freq: Status: Active Protocol: Document 06/01/21 14:30 AW (Rec: 06/01/21 17:21 AW [email or web address]) Balance Tests Single Limb Standing Single Limb- Right 25 sec steady Single Limb- Left 20 sec unsteady PT-OP-F Manual Assessment Start: 05/30/21 12:36 Freq: Status: Active Protocol: Document 05/30/21 14:30 AW (Rec: 05/30/21 17:49 AW [email or web address]) Manual Assessments Soft Tissue Assessment Soft Tissue Mobility Assessment Moderate density and trigger points appreciable in left infraspinatus, teres minor. Increased density bilateral upper traps. Joint Mobility Assessment Joint Mobility Assessment Posterior and inferior GH glides similar side to side without appreciable restriction. PT-OP-J Posture/Palpation/Skin Start: 05/30/21 12:36 Freq: Status: Active Protocol: Document 06/01/21 14:30 AW (Rec: 06/01/21 17:21 AW [email or web address]) Posture Evaluation Position Sitting Evaluation View Lateral Head/C-Spine Posture Forward Head L-Spine Posture Increased Lordosis Shoulder Posture (L) Rounded,(R) Rounded Scapula Posture (L) Protracted,(R) Protracted Arm Posture (L) Internally Rotated,(R) Internally Rotated Pelvis Posture Anteriorly Tilted Weight Distribution Weight Shifted Right,Weight Shifted Posterior Palpation Assessment Location lumbar paraspinals Palpation Location lumbar paraspinals Palpation Findings Soft Tissue Tightness,Muscle Guarding,Tenderness Palpation Details right more affected than left PT-OP-K Range of Motion Start: 05/30/21 12:36 Freq: Status: Active Protocol: Document 06/01/21 14:30 AW (Rec: 06/01/21 17:21 AW [email or web address]) Lumbar Spine Range of Motion Lumbar Spine Active Degrees Testing Position Standing Flexion 55 Extension 13 Comments Positive [place]'s sign. Rotation WFL bilaterally. Increased pain with left rotation. Side bend with fingertips to knee joint bilaterally. PT-OP-L Special Tests Start: 05/30/21 12:36 Freq: Status: Active Protocol: Document 05/30/21 14:30 AW (Rec: 05/30/21 17:49 AW [email or web address]) Special Tests Cervical Spine Special Tests Spurling's Test Test Results negative bilaterally Shoulder Special Tests Cochran Kyle Impingement Test Results positive left Infraspinatus MMT Test Results positive left Comments Vague pain with resisted infraspinatus testing on left. No pain on right. Painful Arc Test Results postive left Comments Pain reproduced 80-110 degrees abduction Drop Arm Rotator Cuff Test Results pt able to hold position without pain PT-OP-M Strength Start: 05/30/21 12:36 Freq: Status: Active Protocol: Document 06/01/21 14:30 AW (Rec: 06/01/21 17:21 AW [email or web address]) Hip Strength Hip Manual Muscle Testing Left Flexion (L2) 4 Good Extension (S1) 4- Good- Abduction 4+ Good+ Adduction 4 Good External Rotation 4+ Good+ Internal Rotation 4+ Good+ Comments Pain with flexion and rotation . Right Flexion (L2) 4+ Good+ Extension (S1) 4 Good Abduction 4 Good Adduction 5 Normal External Rotation 5 Normal Internal Rotation 5 Normal Knee Strength Knee Manual Muscle Testing B Flexion (S2) 5 Normal Extension (L3) 5 Normal Ankle/Foot Strength Ankle and Foot Manual Muscle Testing B Dorsiflexion (L4) 5 Normal Plantarflexion (S1) 4+ Good+ PT-OP-Q Treatments Start: 05/30/21 12:36 Freq: Status: Active Protocol: Document 07/06/21 09:43 AW (Rec: 07/06/21 09:44 AW [id number]) Therapeutic Exercises Supine Exercises supine lower trap/posture press Supine Exercise Name supine lower trap/posture press Reps/Minutes 3SH x 10 Sidelying Exercises GH ER Sidelying Exercise Name GH ER Side left Resistance AROM Comments 2 x 12 open book Sidelying Exercise Name open book Side bilateral Reps/Minutes x10 each side Comments pain-free range; deep breathing end range Sitting Exercises pulleys Sitting Exercise Name pulleys Side bilateral Reps/Minutes 4 min Comments flex, abd thoracic rotation Sitting Exercise Name thoracic rotation Side bilateral Equipment Used no equip; AROM only Reps/Minutes 2x10 UT stretch Sitting Exercise Name UT stretch Side bilateral Reps/Minutes 30 SH x 2 Comments cued posture, ear toward ceiling Standing Exercises GH extension Standing Exercise Name GH extension Side bilateral Resistance TB2 Reps/Minutes x15 Comments focus scapular stab pec stretch Side left Equipment Used wall Reps/Minutes 2x30 Comments arm ~45 degrees abd for pain free range shoulder isometrics Reps/Minutes 3x ea Comments IR only; ER taken out of HEP for now wall posture Reps/Minutes 5x Comments verbal and tactile cues Manual Therapy Treatment Soft Tissue Mobilization thoracic paraspinals Mobilization Type Myofascial Release Intensity/Depth Moderate Body Position Prone Comments during prone ther ex Joint Mobilizations scapulothoracic Joint scapulothoracic Direction inferior, medial Grade III Body Position Sidelying Comments during ther ex mid thoracic Joint T4-T9 Direction PA Grade II Body Position Prone Comments during press ups Self-Care/Home Management Treatment Education Patient Education Pain Management,Posture Other Education Educated pt on sleep positiioning in sidelying to minimize GH elevation during sleep. PT-OP-R Modalities Start: 05/30/21 12:36 Freq: Status: Active Protocol: Document 06/07/21 14:28 SAK (Rec: 06/07/21 16:46 SAK [id number]) Hot Pack/Cold Pack Treatment ice pack Location left shoulder Patient Position Hooklying PT-OP-T Assessment and Plan Start: 05/30/21 12:36 Freq: Status: Active Protocol: Document 07/06/21 09:43 AW (Rec: 07/06/21 12:53 AW [email or web address]) Physical Therapy Assessment Goals Seven Impairment sit to stand Short Term Goal (STG) Pt will complete 5 Time Sit to emergency management coordinator 14 seconds or less without UE and without increase in baseline pain. STG Duration 4 weeks - 06/27/21 Engineering Agent Goal (LTG) Pt will complete 15 reps in 30 Second Sit to Stand Test without UE and without increase in baseline pain. LTG Duration 2 months - 08/04/21 Six Impairment low back pain Short Term Goal (STG) Pt will tolerate sitting 60 minutes to improve driving tolerance. STG Duration 4 weeks - 06/27/21 [facility] Goal (LTG) Pt will tolerate kneeling 30 minutes at a time for zoila activities. LTG Duration 2 months - 08/04/21 Five Impairment balance Short Term Goal (STG) Pt will improve SLS to 30 seconds bilaterally STG Duration 4 weeks - 06/27/21 Four Impairment left shoulder pain Short Term Goal (STG) Pt will improve left shoulder internal rotation ROM to L1 or higher (at midline) without increase in baseline pain. STG Duration 4 weeks - 06/27/21 Engineering Agent Goal (LTG) Pt will throw a ball or cast a fishing reel with left arm without increase in baseline pain for return to recreational activities. LTG Duration 2 months - 08/04/21 Three Impairment QuickDASH [facility] Goal (LTG) Pt will improve QuickDASH from 30% impairment to 15% or less as a measure of improvement in daily activities. LTG Duration 2 months - 08/04/21 Two Impairment ROM [facility] Goal (LTG) Pt will achieve active ROM of left shoulder equal to that of right shoulder for improvement in ADL performance . LTG Duration 2 months - 08/04/21 One Impairment lacks HEP Short Term Goal (STG) Pt will be independent with HEP to support therapy services provided in clinic. STG Duration 4 weeks - 06/27/21 [facility] Goal (LTG) Pt will be independent with HEP for postural education and pain management for left shoulder. LTG Duration 2 months - 08/04/21 Assessment Summary Assessment Pt's back pain is improving with continued focus on thoracic mobility. Shoulder pain in infraspinatus and teres minor distribution continues. Advised pt to replace isometric ER in HEP with sidelying ER AROM and continued education on activity modification. Physical Therapy Plan Frequency and Duration Frequency of Treatment 1-2x/week Duration of Treatment 2 months Plan of Care Start Date 05/30/21 Plan of Care End Date 08/04/21 Therapeutic Interventions Therapeutic Interventions Balance Training,Gait Training ,Home Exercise Program,Joint Mobilizations,Manual Therapy, Neuromuscular Re-education, Patient/Caregiver Education, Self-Care/Home Management,Soft Tissue Mobilization,Taping, Therapeutic Activities, Therapeutic Exercises Modalities Cold Pack/Ice Massage,Electric Stimulation,Hot Packs Next Visit Focus/Plan Next Note Type Treatment Note Next Visit Plan Assess response to last session and sleep position education. Progress ther ex as tolerated for core stabilization, left shoulder strengthening and stabilization, postural correction, thoracic mobility.
--- NOTE | 2021-07-18 12:17 | PT.OTN ---
Current Diagnoses Other chronic pain (07/18/21) Pain in left shoulder (07/18/21) Abnormal posture (07/18/21) Physical Therapy Treatment Note PT-OP-A Visit Information Start: 05/30/21 12:36 Freq: Status: Active Protocol: Document 07/18/21 09:44 AW (Rec: 07/18/21 09:40 AW [id number]) Out-Patient Physical Therapy Visit Information Visit Information Visit Type Treatment Note Visit Start Time 09:00 Visit Stop Time 09:44 Total Visit Minutes 44 Evaluation Information Evaluation Date 05/30/21 PT-OP-B Current Condition Start: 05/30/21 12:36 Freq: Status: Active Protocol: Document 06/07/21 14:28 SAK (Rec: 06/07/21 15:16 SAK [id number]) Current Condition History of Current Condition History of Current Condition Russ reports low back pain for the past few months which is worse on the left side and seems fairly irritable to him. He wakes up in pain. Rest and ice help. 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 He is also here for left shoulder pain which has been bothering him for a while. He has history of right A/C separation which is visible but no longer causes him pain. Left shoulder pain has been disturbing his sleep. He hurts more on the back of his shoulder. He can not throw anything or cast a fishing line. He has been having trouble getting dressed since his shoulder hurts when his arm his behind his back. He denies trauma Treatment Goals Patient/Caregiver Goals Pt would like to be able to sleep on left side, to be able to throw a ball, to be able to cast a fishing line with left hand, and be able to dress himself with less pain. PT-OP-C Subjective Start: 05/30/21 12:36 Freq: Status: Active Protocol: Document 07/18/21 09:44 AW (Rec: 07/18/21 09:40 AW [id number]) OP-PT Subjective Patient Comments Patient Comments Pt reports better awareness of sleep position, less pain at night. Back pain is largely resolved unless pt doing long hours zoila or heavy lifting . PT-OP-D Balance Start: 05/30/21 12:36 Freq: Status: Active Protocol: Document 06/01/21 14:30 AW (Rec: 06/01/21 17:21 AW [email or web address]) Balance Tests Single Limb Standing Single Limb- Right 25 sec steady Single Limb- Left 20 sec unsteady PT-OP-F Manual Assessment Start: 05/30/21 12:36 Freq: Status: Active Protocol: Document 05/30/21 14:30 AW (Rec: 05/30/21 17:49 AW [email or web address]) Manual Assessments Soft Tissue Assessment Soft Tissue Mobility Assessment Moderate density and trigger points appreciable in left infraspinatus, teres minor. Increased density bilateral upper traps. Joint Mobility Assessment Joint Mobility Assessment Posterior and inferior GH glides similar side to side without appreciable restriction. PT-OP-J Posture/Palpation/Skin Start: 05/30/21 12:36 Freq: Status: Active Protocol: Document 06/01/21 14:30 AW (Rec: 06/01/21 17:21 AW [email or web address]) Posture Evaluation Position Sitting Evaluation View Lateral Head/C-Spine Posture Forward Head L-Spine Posture Increased Lordosis Shoulder Posture (L) Rounded,(R) Rounded Scapula Posture (L) Protracted,(R) Protracted Arm Posture (L) Internally Rotated,(R) Internally Rotated Pelvis Posture Anteriorly Tilted Weight Distribution Weight Shifted Right,Weight Shifted Posterior Palpation Assessment Location lumbar paraspinals Palpation Location lumbar paraspinals Palpation Findings Soft Tissue Tightness,Muscle Guarding,Tenderness Palpation Details right more affected than left PT-OP-K Range of Motion Start: 05/30/21 12:36 Freq: Status: Active Protocol: Document 06/01/21 14:30 AW (Rec: 06/01/21 17:21 AW [email or web address]) Lumbar Spine Range of Motion Lumbar Spine Active Degrees Testing Position Standing Flexion 55 Extension 13 Comments Positive [place]'s sign. Rotation WFL bilaterally. Increased pain with left rotation. Side bend with fingertips to knee joint bilaterally. PT-OP-L Special Tests Start: 05/30/21 12:36 Freq: Status: Active Protocol: Document 05/30/21 14:30 AW (Rec: 05/30/21 17:49 AW [email or web address]) Special Tests Cervical Spine Special Tests Spurling's Test Test Results negative bilaterally Shoulder Special Tests Cochran Kyle Impingement Test Results positive left Infraspinatus MMT Test Results positive left Comments Vague pain with resisted infraspinatus testing on left. No pain on right. Painful Arc Test Results postive left Comments Pain reproduced 80-110 degrees abduction Drop Arm Rotator Cuff Test Results pt able to hold position without pain PT-OP-M Strength Start: 05/30/21 12:36 Freq: Status: Active Protocol: Document 06/01/21 14:30 AW (Rec: 06/01/21 17:21 AW [email or web address]) Hip Strength Hip Manual Muscle Testing Left Flexion (L2) 4 Good Extension (S1) 4- Good- Abduction 4+ Good+ Adduction 4 Good External Rotation 4+ Good+ Internal Rotation 4+ Good+ Comments Pain with flexion and rotation . Right Flexion (L2) 4+ Good+ Extension (S1) 4 Good Abduction 4 Good Adduction 5 Normal External Rotation 5 Normal Internal Rotation 5 Normal Knee Strength Knee Manual Muscle Testing B Flexion (S2) 5 Normal Extension (L3) 5 Normal Ankle/Foot Strength Ankle and Foot Manual Muscle Testing B Dorsiflexion (L4) 5 Normal Plantarflexion (S1) 4+ Good+ PT-OP-Q Treatments Start: 05/30/21 12:36 Freq: Status: Active Protocol: Document 07/18/21 09:44 AW (Rec: 07/18/21 09:40 AW [id number]) Cardio Equipment Upper Body Ergometer (UBE) Duration (Minutes) 5 RPM 75 Seat Position 13 Height 2.5 Therapeutic Exercises Supine Exercises foam roll T/S ext Supine Exercise Name foam roll T/S ext Equipment Used half roll high density Comments arms crossed, deep breaths supine lower trap/posture press Supine Exercise Name supine lower trap/posture press Reps/Minutes 3SH x 10 scap protraction Supine Exercise Name scap protraction Side bilateral Resistance 5# Equipment Used db Reps/Minutes 2x15 Prone Exercises pendulum + row Prone Exercise Name scap retraction + GH extension Side left Resistance 5# Equipment Used db Reps/Minutes 2x10 scap retraction + GH extension Prone Exercise Name scap retraction + GH extension Side bilateral Resistance AROM Reps/Minutes 3SH x 10 Sidelying Exercises GH ER Sidelying Exercise Name GH ER Side left Resistance AROM; 1# db Reps/Minutes 2x12 Comments pain beyond neutral open book Sidelying Exercise Name open book Side bilateral Reps/Minutes x10 each side Comments pain-free range; deep breathing end range Sitting Exercises pulleys Sitting Exercise Name pulleys Side bilateral Reps/Minutes 4 min Comments flex, abd thoracic rotation Sitting Exercise Name thoracic rotation Side bilateral Equipment Used radames stool; AROM only Reps/Minutes 2x10 UT stretch Sitting Exercise Name UT stretch Side bilateral Reps/Minutes 30 SH x 2 Comments cued posture, ear toward ceiling Standing Exercises pec stretch Side left Equipment Used wall Reps/Minutes 2x30 Comments arm ~45 degrees abd for pain free range Manual Therapy Treatment Joint Mobilizations scapulothoracic Joint scapulothoracic Direction inferior, medial Grade III Body Position Sidelying Comments during ther ex mid thoracic Joint T4-T9 Direction PA Grade II Body Position Prone Comments during press ups Self-Care/Home Management Treatment Education Patient Education Home Exercise Program,Pain Management,Posture PT-OP-R Modalities Start: 05/30/21 12:36 Freq: Status: Active Protocol: Document 06/07/21 14:28 SAK (Rec: 06/07/21 16:46 SAK [id number]) Hot Pack/Cold Pack Treatment ice pack Location left shoulder Patient Position Hooklying PT-OP-T Assessment and Plan Start: 05/30/21 12:36 Freq: Status: Active Protocol: Document 07/18/21 09:44 AW (Rec: 07/18/21 12:17 AW [email or web address]) Physical Therapy Assessment Goals Seven Impairment sit to stand Short Term Goal (STG) Pt will complete 5 Time Sit to business quality assurance analyst 14 seconds or less without UE and without increase in baseline pain. STG Duration 4 weeks - 06/27/21 Counselor Aid Goal (LTG) Pt will complete 15 reps in 30 Second Sit to Stand Test without UE and without increase in baseline pain. LTG Duration 2 months - 08/04/21 Six Impairment low back pain Short Term Goal (STG) Pt will tolerate sitting 60 minutes to improve driving tolerance. STG Duration 4 weeks - 06/27/21 Shelter Goal (LTG) Pt will tolerate kneeling 30 minutes at a time for zoila activities. LTG Duration 2 months - 08/04/21 Five Impairment balance Short Term Goal (STG) Pt will improve SLS to 30 seconds bilaterally STG Duration 4 weeks - 06/27/21 Four Impairment left shoulder pain Short Term Goal (STG) Pt will improve left shoulder internal rotation ROM to L1 or higher (at midline) without increase in baseline pain. STG Duration 4 weeks - 06/27/21 Counselor Aid Goal (LTG) Pt will throw a ball or cast a fishing reel with left arm without increase in baseline pain for return to recreational activities. LTG Duration 2 months - 08/04/21 Three Impairment QuickDASH Shelter Goal (LTG) Pt will improve QuickDASH from 30% impairment to 15% or less as a measure of improvement in daily activities. LTG Duration 2 months - 08/04/21 Two Impairment ROM Shelter Goal (LTG) Pt will achieve active ROM of left shoulder equal to that of right shoulder for improvement in ADL performance . LTG Duration 2 months - 08/04/21 One Impairment lacks HEP Short Term Goal (STG) Pt will be independent with HEP to support therapy services provided in clinic. STG Duration 4 weeks - 06/27/21 Shelter Goal (LTG) Pt will be independent with HEP for postural education and pain management for left shoulder. LTG Duration 2 months - 08/04/21 Assessment Summary Assessment Shoulder ROM is improving and pt is able to tolerate more activity with less pain. He reports sleep has improved with modifications to positioning and he no longer wakes up as much due to shoulder pain. He continues to need cues for pain-free ROM in all exercises. Physical Therapy Plan Frequency and Duration Frequency of Treatment 1-2x/week Duration of Treatment 2 months Plan of Care Start Date 05/30/21 Plan of Care End Date 08/04/21 Therapeutic Interventions Therapeutic Interventions Balance Training,Gait Training ,Home Exercise Program,Joint Mobilizations,Manual Therapy, Neuromuscular Re-education, Patient/Caregiver Education, Self-Care/Home Management,Soft Tissue Mobilization,Taping, Therapeutic Activities, Therapeutic Exercises Modalities Cold Pack/Ice Massage,Electric Stimulation,Hot Packs Next Visit Focus/Plan Next Note Type Treatment Note Next Visit Plan Initiate IR stretching. Progress ther ex as tolerated for core stabilization, left shoulder strengthening and stabilization, postural correction, thoracic mobility.
--- NOTE | 2021-07-25 09:42 | PT-OP ANOTE ---
Pt no-showed final scheduled appointment. Called and LVM regarding no-show and asked pt to call back and indicate preference for d/c vs schedule another appointment.
--- NOTE | 2021-08-08 11:44 | PT.OTN ---
Current Diagnoses Other chronic pain (08/08/21) Pain in left shoulder (08/08/21) Abnormal posture (08/08/21) Physical Therapy Treatment Note PT-OP-A Visit Information Start: 05/30/21 12:36 Freq: Status: Active Protocol: Document 08/08/21 08:13 [facility] (Rec: 08/08/21 09:02 [facility] [id number]) Out-Patient Physical Therapy Visit Information Visit Information Visit Type Treatment Note Visit Start Time 09:00 Visit Stop Time 09:46 Total Visit Minutes 46 Visit Number 6 Evaluation Information Evaluation Date 05/30/21 PT-OP-B Current Condition Start: 05/30/21 12:36 Freq: Status: Active Protocol: Document 06/07/21 14:28 SAK (Rec: 06/07/21 15:16 SAK [id number]) Current Condition History of Current Condition History of Current Condition Russ reports low back pain for the past few months which is worse on the left side and seems fairly irritable to him. He wakes up in pain. Rest and ice help. 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 He is also here for left shoulder pain which has been bothering him for a while. He has history of right A/C separation which is visible but no longer causes him pain. Left shoulder pain has been disturbing his sleep. He hurts more on the back of his shoulder. He can not throw anything or cast a fishing line. He has been having trouble getting dressed since his shoulder hurts when his arm his behind his back. He denies trauma Treatment Goals Patient/Caregiver Goals Pt would like to be able to sleep on left side, to be able to throw a ball, to be able to cast a fishing line with left hand, and be able to dress himself with less pain. PT-OP-C Subjective Start: 05/30/21 12:36 Freq: Status: Active Protocol: Document 08/08/21 08:13 SAK (Rec: 08/08/21 09:02 SAK [id number]) OP-PT Subjective Patient Comments Patient Comments Injured my shoulder at work, not sure what he did, took it easy for a couple days and saw doctor. States he saw his doctor 08/03/21, she gave him some cream (can't remember name) and oral antiinflammatory and it feels much better about 50% improved . Pain level currently 2/10. Hasn't done exercises for about a week. 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 Back pretty good in am, but if has to stand for any lengthy period of time, or with work, pain increases. States with shoulder it might be the motion of cutting the roof shingles. PT-OP-D Balance Start: 05/30/21 12:36 Freq: Status: Active Protocol: Document 06/01/21 14:30 AW (Rec: 06/01/21 17:21 AW [email or web address]) Balance Tests Single Limb Standing Single Limb- Right 25 sec steady Single Limb- Left 20 sec unsteady PT-OP-F Manual Assessment Start: 05/30/21 12:36 Freq: Status: Active Protocol: Document 05/30/21 14:30 AW (Rec: 05/30/21 17:49 AW [email or web address]) Manual Assessments Soft Tissue Assessment Soft Tissue Mobility Assessment Moderate density and trigger points appreciable in left infraspinatus, teres minor. Increased density bilateral upper traps. Joint Mobility Assessment Joint Mobility Assessment Posterior and inferior GH glides similar side to side without appreciable restriction. PT-OP-J Posture/Palpation/Skin Start: 05/30/21 12:36 Freq: Status: Active Protocol: Document 06/01/21 14:30 AW (Rec: 06/01/21 17:21 AW [email or web address]) Posture Evaluation Position Sitting Evaluation View Lateral Head/C-Spine Posture Forward Head L-Spine Posture Increased Lordosis Shoulder Posture (L) Rounded,(R) Rounded Scapula Posture (L) Protracted,(R) Protracted Arm Posture (L) Internally Rotated,(R) Internally Rotated Pelvis Posture Anteriorly Tilted Weight Distribution Weight Shifted Right,Weight Shifted Posterior Palpation Assessment Location lumbar paraspinals Palpation Location lumbar paraspinals Palpation Findings Soft Tissue Tightness,Muscle Guarding,Tenderness Palpation Details right more affected than left PT-OP-K Range of Motion Start: 05/30/21 12:36 Freq: Status: Active Protocol: Document 06/01/21 14:30 AW (Rec: 06/01/21 17:21 AW [email or web address]) Lumbar Spine Range of Motion Lumbar Spine Active Degrees Testing Position Standing Flexion 55 Extension 13 Comments Positive Yohana's sign. Rotation WFL bilaterally. Increased pain with left rotation. Side bend with fingertips to knee joint bilaterally. PT-OP-L Special Tests Start: 05/30/21 12:36 Freq: Status: Active Protocol: Document 05/30/21 14:30 AW (Rec: 05/30/21 17:49 AW [email or web address]) Special Tests Cervical Spine Special Tests Spurling's Test Test Results negative bilaterally Shoulder Special Tests Cochran Kyle Impingement Test Results positive left Infraspinatus MMT Test Results positive left Comments Vague pain with resisted infraspinatus testing on left. No pain on right. Painful Arc Test Results postive left Comments Pain reproduced 80-110 degrees abduction Drop Arm Rotator Cuff Test Results pt able to hold position without pain PT-OP-M Strength Start: 05/30/21 12:36 Freq: Status: Active Protocol: Document 06/01/21 14:30 AW (Rec: 06/01/21 17:21 AW [email or web address]) Hip Strength Hip Manual Muscle Testing Left Flexion (L2) 4 Good Extension (S1) 4- Good- Abduction 4+ Good+ Adduction 4 Good External Rotation 4+ Good+ Internal Rotation 4+ Good+ Comments Pain with flexion and rotation . Right Flexion (L2) 4+ Good+ Extension (S1) 4 Good Abduction 4 Good Adduction 5 Normal External Rotation 5 Normal Internal Rotation 5 Normal Knee Strength Knee Manual Muscle Testing B Flexion (S2) 5 Normal Extension (L3) 5 Normal Ankle/Foot Strength Ankle and Foot Manual Muscle Testing B Dorsiflexion (L4) 5 Normal Plantarflexion (S1) 4+ Good+ PT-OP-Q Treatments Start: 05/30/21 12:36 Freq: Status: Active Protocol: Document 08/08/21 08:13 [facility] (Rec: 08/08/21 09:02 [facility] [id number]) Cardio Equipment Upper Body Ergometer (UBE) Duration (Minutes) 5 RPM 75 Seat Position 13 Height 2.5 Other forward and back Therapeutic Exercises Supine Exercises foam roll T/S ext Supine Exercise Name foam roll T/S ext Equipment Used half roll high density Comments arms crossed, deep breaths supine lower trap/posture press Supine Exercise Name supine lower trap/posture press Reps/Minutes 3SH x 10 scap protraction Supine Exercise Name scap protraction Side bilateral Resistance 5# Equipment Used db Reps/Minutes 2x15 Sidelying Exercises sleeper stretch Reps/Minutes 2x30 GH ER Sidelying Exercise Name GH ER Side left Resistance AROM Reps/Minutes 2x12 Comments cues for keeping elbow at side open book Sidelying Exercise Name open book Side bilateral Reps/Minutes x10 each side Comments pain-free range; deep breathing end range Sitting Exercises pulleys Sitting Exercise Name pulleys Side bilateral Reps/Minutes 4 min Comments flex, abd UT stretch Sitting Exercise Name UT stretch Side bilateral Reps/Minutes 30 SH x 2 Comments cued posture, ear toward ceiling Standing Exercises IR stretch Equipment Used towel Reps/Minutes 2x30 Comments cues for pain-free ROM GH extension Standing Exercise Name GH extension Side bilateral Resistance TB2 Reps/Minutes x15 Comments focus scapular stab pec stretch Side left Equipment Used wall Reps/Minutes 2x30 Comments arm ~45 degrees abd for pain free range shoulder isometrics Comments verbal review Manual Therapy Treatment Joint Mobilizations scapulothoracic Joint scapulothoracic Direction inferior, medial Grade III Body Position Sidelying Comments during ther ex Taping left shoulder Body Location left shoulder Treatment Focus support, pain relief Type of Tape kinesiotape Skin Inspection intact Comments 3 Y strips 50-75% stretch Self-Care/Home Management Treatment Education Patient Education Home Exercise Program,Pain Management,Posture Other Education given to-go ice pack for patient to use on drive to job site this am PT-OP-R Modalities Start: 05/30/21 12:36 Freq: Status: Active Protocol: Document 06/07/21 14:28 [facility] (Rec: 06/07/21 16:46 [facility] [id number]) Hot Pack/Cold Pack Treatment ice pack Location left shoulder Patient Position Hooklying PT-OP-T Assessment and Plan Start: 05/30/21 12:36 Freq: Status: Active Protocol: Document 08/08/21 08:13 [facility] (Rec: 08/08/21 09:02 [facility] [id number]) Physical Therapy Assessment Goals Seven Impairment sit to stand Short Term Goal (STG) 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 STG Duration 4 weeks - 06/27/21 Group Home Goal (LTG) Pt will complete 15 reps in 30 Second Sit to Stand Test without UE and without increase in baseline pain. LTG Duration 2 months - 08/04/21 Six Impairment low back pain Short Term Goal (STG) Pt will tolerate sitting 60 minutes to improve driving tolerance. STG Duration 4 weeks - 06/27/21 Group Home Goal (LTG) Pt will tolerate kneeling 30 minutes at a time for zoila activities. LTG Duration 2 months - 08/04/21 Five Impairment balance Short Term Goal (STG) Pt will improve SLS to 30 seconds bilaterally STG Duration 4 weeks - 06/27/21 Four Impairment left shoulder pain Short Term Goal (STG) Pt will improve left shoulder internal rotation ROM to L1 or higher (at midline) without increase in baseline pain. STG Duration 4 weeks - 06/27/21 Merchandising Intern Goal (LTG) Pt will throw a ball or cast a fishing reel with left arm without increase in baseline pain for return to recreational activities. LTG Duration 2 months - 08/04/21 Three Impairment QuickDASH Group Home Goal (LTG) Pt will improve QuickDASH from 30% impairment to 15% or less as a measure of improvement in daily activities. LTG Duration 2 months - 08/04/21 Two Impairment ROM Merchandising Intern Goal (LTG) Pt will achieve active ROM of left shoulder equal to that of right shoulder for improvement in ADL performance . LTG Duration 2 months - 08/04/21 One Impairment lacks HEP Short Term Goal (STG) Pt will be independent with HEP to support therapy services provided in clinic. STG Duration 4 weeks - 06/27/21 Merchandising Intern Goal (LTG) Pt will be independent with HEP for postural education and pain management for left shoulder. LTG Duration 2 months - 08/04/21 Assessment Summary Assessment Shoulder pain exacerbated by repetitive job activity, some improvement with medication and cream. Discussed potential modifications of job task but feel he also needs education on technique especially activation of scapular stabilizers prior to pulling back UE to cut. Demonstrated good understanding of use of towel and also sleeper stetch for IR stretch. Initially patient feeling pinch at end range shoulder flex on pulleys but stopped to stretch UT, then resumed pulleys without pinching sensation. Physical Therapy Plan Frequency and Duration Frequency of Treatment 1-2x/week Duration of Treatment 2 months Plan of Care Start Date 05/30/21 Plan of Care End Date 08/04/21 Therapeutic Interventions Therapeutic Interventions Balance Training,Gait Training ,Home Exercise Program,Joint Mobilizations,Manual Therapy, Neuromuscular Re-education, Patient/Caregiver Education, Self-Care/Home Management,Soft Tissue Mobilization,Taping, Therapeutic Activities, Therapeutic Exercises Modalities Cold Pack/Ice Massage,Electric Stimulation,Hot Packs Next Visit Focus/Plan Next Note Type Treatment Note Next Visit Plan Educate on scapular activation with job tasks, assess response to kinesiotape. Continue ther ex progression and manual techniques as tolerated.
--- NOTE | 2021-09-05 16:54 | PT.OTN ---
Current Diagnoses Other chronic pain (09/05/21) Pain in left shoulder (09/05/21) Abnormal posture (09/05/21) Physical Therapy Treatment Note PT-OP-A Visit Information Start: 05/30/21 12:36 Freq: Status: Active Protocol: Document 09/05/21 15:16 [facility] (Rec: 09/05/21 15:39 [facility] [id number]) Out-Patient Physical Therapy Visit Information Visit Information Visit Type Treatment Note Visit Start Time 15:17 Visit Stop Time 16:00 Total Visit Minutes 43 Visit Number 7 Evaluation Information Evaluation Date 05/30/21 PT-OP-B Current Condition Start: 05/30/21 12:36 Freq: Status: Active Protocol: Document 06/07/21 14:28 [facility]AK (Rec: 06/07/21 15:16 [facility] [id number]) Current Condition History of Current Condition History of Current Condition Russ reports low back pain for the past few months which is worse on the left side and seems fairly irritable to him. He wakes up in pain. Rest and ice help. 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 He is also here for left shoulder pain which has been bothering him for a while. He has history of right A/C separation which is visible but no longer causes him pain. Left shoulder pain has been disturbing his sleep. He hurts more on the back of his shoulder. He can not throw anything or cast a fishing line. He has been having trouble getting dressed since his shoulder hurts when his arm his behind his back. He denies trauma Treatment Goals Patient/Caregiver Goals Pt would like to be able to sleep on left side, to be able to throw a ball, to be able to cast a fishing line with left hand, and be able to dress himself with less pain. PT-OP-C Subjective Start: 05/30/21 12:36 Freq: Status: Active Protocol: Document 09/05/21 15:16 [facility] (Rec: 09/05/21 15:39 [facility] [id number]) OP-PT Subjective Patient Comments Patient Comments Seeing orthopedist 09/27/21. STates did a big job recently with resulting increase in back and shoulder pain. Given ointment by doctor which helps some. NOt too bad in am, but pain inc with bending over to tie shoes. Couldn't tolerate doing his exercises. Certain moveme nts at job would light it up. Kinesiotape some helpful. PT-OP-D Balance Start: 05/30/21 12:36 Freq: Status: Active Protocol: Document 06/01/21 14:30 AW (Rec: 06/01/21 17:21 AW [email or web address]) Balance Tests Single Limb Standing Single Limb- Right 25 sec steady Single Limb- Left 20 sec unsteady PT-OP-F Manual Assessment Start: 05/30/21 12:36 Freq: Status: Active Protocol: Document 05/30/21 14:30 AW (Rec: 05/30/21 17:49 AW [email or web address]) Manual Assessments Soft Tissue Assessment Soft Tissue Mobility Assessment Moderate density and trigger points appreciable in left infraspinatus, teres minor. Increased density bilateral upper traps. Joint Mobility Assessment Joint Mobility Assessment Posterior and inferior GH glides similar side to side without appreciable restriction. PT-OP-J Posture/Palpation/Skin Start: 05/30/21 12:36 Freq: Status: Active Protocol: Document 06/01/21 14:30 AW (Rec: 06/01/21 17:21 AW [email or web address]) Posture Evaluation Position Sitting Evaluation View Lateral Head/C-Spine Posture Forward Head L-Spine Posture Increased Lordosis Shoulder Posture (L) Rounded,(R) Rounded Scapula Posture (L) Protracted,(R) Protracted Arm Posture (L) Internally Rotated,(R) Internally Rotated Pelvis Posture Anteriorly Tilted Weight Distribution Weight Shifted Right,Weight Shifted Posterior Palpation Assessment Location lumbar paraspinals Palpation Location lumbar paraspinals Palpation Findings Soft Tissue Tightness,Muscle Guarding,Tenderness Palpation Details right more affected than left PT-OP-K Range of Motion Start: 05/30/21 12:36 Freq: Status: Active Protocol: Document 06/01/21 14:30 AW (Rec: 06/01/21 17:21 AW [email or web address]) Lumbar Spine Range of Motion Lumbar Spine Active Degrees Testing Position Standing Flexion 55 Extension 13 Comments Positive Corona's sign. Rotation WFL bilaterally. Increased pain with left rotation. Side bend with fingertips to knee joint bilaterally. PT-OP-L Special Tests Start: 05/30/21 12:36 Freq: Status: Active Protocol: Document 05/30/21 14:30 AW (Rec: 05/30/21 17:49 AW [email or web address]) Special Tests Cervical Spine Special Tests Spurling's Test Test Results negative bilaterally Shoulder Special Tests Cochran Kyle Impingement Test Results positive left Infraspinatus MMT Test Results positive left Comments Vague pain with resisted infraspinatus testing on left. No pain on right. Painful Arc Test Results postive left Comments Pain reproduced 80-110 degrees abduction Drop Arm Rotator Cuff Test Results pt able to hold position without pain PT-OP-M Strength Start: 05/30/21 12:36 Freq: Status: Active Protocol: Document 06/01/21 14:30 AW (Rec: 06/01/21 17:21 AW [email or web address]) Hip Strength Hip Manual Muscle Testing Left Flexion (L2) 4 Good Extension (S1) 4- Good- Abduction 4+ Good+ Adduction 4 Good External Rotation 4+ Good+ Internal Rotation 4+ Good+ Comments Pain with flexion and rotation . Right Flexion (L2) 4+ Good+ Extension (S1) 4 Good Abduction 4 Good Adduction 5 Normal External Rotation 5 Normal Internal Rotation 5 Normal Knee Strength Knee Manual Muscle Testing B Flexion (S2) 5 Normal Extension (L3) 5 Normal Ankle/Foot Strength Ankle and Foot Manual Muscle Testing B Dorsiflexion (L4) 5 Normal Plantarflexion (S1) 4+ Good+ PT-OP-Q Treatments Start: 05/30/21 12:36 Freq: Status: Active Protocol: Document 09/05/21 15:16 [facility] (Rec: 09/05/21 15:39 [facility] [id number]) Cardio Equipment Upper Body Ergometer (UBE) Duration (Minutes) 5 RPM 75 Seat Position 13 Height 2.5 Other forward and back Therapeutic Exercises Supine Exercises shoulder IR/ER Side left Comments after GH inf glid mob foam roll T/S ext Supine Exercise Name foam roll T/S ext Equipment Used half roll high density Comments arms crossed, deep breaths supine lower trap/posture press Supine Exercise Name supine lower trap/posture press Reps/Minutes 3SH x 10 scap protraction Supine Exercise Name scap protraction Side bilateral Resistance 5# Equipment Used db Reps/Minutes 2x15 Prone Exercises pendulum + row Prone Exercise Name scap retraction + GH extension Side left Resistance 5# Equipment Used db Reps/Minutes 2x10 scap retraction + GH extension Prone Exercise Name scap retraction + GH extension Side bilateral Resistance AROM Reps/Minutes 3SH x 10 Sidelying Exercises GH ER Sidelying Exercise Name GH ER Side left Resistance AROM Reps/Minutes 2x12 Comments cues for keeping elbow at side open book Sidelying Exercise Name open book Side bilateral Reps/Minutes x10 each side Comments pain-free range; deep breathing end range Sitting Exercises pulleys Sitting Exercise Name pulleys Side bilateral Reps/Minutes 4 min Comments flex, abd thoracic rotation Sitting Exercise Name thoracic rotation Side bilateral Reps/Minutes 2x10 UT stretch Sitting Exercise Name UT stretch Side bilateral Reps/Minutes 30 SH x 2 Comments cued posture, ear toward ceiling Manual Therapy Treatment Soft Tissue Mobilization upper traps, deltoid left Mobilization Type Myofascial Release Intensity/Depth Moderate Body Position Hooklying Joint Mobilizations GH Direction inf glide Grade II Body Position Hooklying Reps/Duration 3 min Taping left shoulder Body Location left shoulder Treatment Focus support, pain relief Type of Tape kinesiotape Skin Inspection intact Comments 3 Y strips 50-75% stretch Self-Care/Home Management Treatment Education Patient Education Home Exercise Program,Pain Management,Posture PT-OP-R Modalities Start: 05/30/21 12:36 Freq: Status: Active Protocol: Document 06/07/21 14:28 [facility] (Rec: 06/07/21 16:46 [facility] [id number]) Hot Pack/Cold Pack Treatment ice pack Location left shoulder Patient Position Hooklying PT-OP-T Assessment and Plan Start: 05/30/21 12:36 Freq: Status: Active Protocol: Document 09/05/21 15:16 [facility] (Rec: 09/05/21 15:39 [facility] [id number]) Physical Therapy Assessment Goals Seven Impairment sit to stand Short Term Goal (STG) 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 STG Duration 4 weeks - 06/27/21 Fdc Goal (LTG) Pt will complete 15 reps in 30 Second Sit to Stand Test without UE and without increase in baseline pain. 09/06/21: goal progress LTG Duration 11/06/21 Six Impairment low back pain Short Term Goal (STG) Pt will tolerate sitting 60 minutes to improve driving tolerance. 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 09/06/21: goal progress LTG Duration 11/06/21 Five Impairment balance Short Term Goal (STG) Pt will improve SLS to 30 seconds bilaterally STG Duration 4 weeks - 06/27/21 LTG Duration 11/06/21 Four Impairment left shoulder pain Short Term Goal (STG) Pt will improve left shoulder internal rotation ROM to L1 or higher (at midline) without increase in baseline pain. 09/06/21: pain still increases with internal rotation , reaching behind his back STG Duration 10/06/21 Fdc Goal (LTG) Pt will throw a ball or cast a fishing reel with left arm without increase in baseline pain for return to recreational activities. 09/06/21: no progress LTG Duration 11/06/21 Three Impairment QuickDASH Refinery Operator Helper Cracking Unit Goal (LTG) Pt will improve QuickDASH from 30% impairment to 15% or less as a measure of improvement in daily activities. 09/05/21: 30%, had been making improvement but exacerbated today LTG Duration 11/06/21 Two Impairment ROM Fdc Goal (LTG) Pt will achieve active ROM of left shoulder equal to that of right shoulder for improvement in ADL performance . 09/05/21:goal progress but painful LTG Duration 10/16/21 One Impairment lacks HEP Short Term Goal (STG) Pt will be independent with HEP to support therapy services provided in clinic. STG Duration goal met Fdc Goal (LTG) Pt will be independent with HEP for postural education and pain management for left shoulder. 09/05/21: goal partially met, feel further progression would be helpful. Compliance variable. LTG Duration 10/16/21 Assessment Summary Assessment Most painful shoulder reaching out to side, shoulder abduction, lacking full flexion. Signs and symptoms consistent with rotator cuff impingment. 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 REviewed HEP, patient has been inconsistent in performance. Added GH inferior glides today and patient was then able to perform shoulder IR and ER without pain. Importance of alignment and performance of HEP, plus modification of his activity stressed. We discussed hold PT at this time for patient to follow-up with his physician, he will continue with HEP and let us know physician recommendations . Physical Therapy Plan Frequency and Duration Frequency of Treatment 4 PT visits Duration of Treatment 2 months Plan of Care Start Date 09/05/21 Plan of Care End Date 11/06/21 Therapeutic Interventions Therapeutic Interventions Balance Training,Gait Training ,Home Exercise Program,Joint Mobilizations,Manual Therapy, Neuromuscular Re-education, Patient/Caregiver Education, Self-Care/Home Management,Soft Tissue Mobilization,Taping, Therapeutic Activities, Therapeutic Exercises Modalities Cold Pack/Ice Massage,Electric Stimulation,Hot Packs Next Visit Focus/Plan Next Note Type Treatment Note Next Visit Plan Assess compliance and response to HEP, modification of activity, physician recommendations, and determine need for further PT
--- NOTE | 2021-09-05 16:55 | PT.OPPOC ---
Physical, Occupational & Speech Therapy At [facility] Current Diagnoses Other chronic pain (09/05/21) Pain in left shoulder (09/05/21) Abnormal posture (09/05/21) Visit Care Team Role Provider Type Jon Fu MD Attending Provider Non-Staff Primary Care Provider Referring Provider Specialty: Family Practice Address: [address] [place] [address], [place], [address] Email: Plan Of Care PT-OP-T Assessment and Plan Start: 05/30/21 12:36 Freq: Status: Active Protocol: Document 09/05/21 15:16 SAK (Rec: 09/05/21 15:39 SAK [id number]) Physical Therapy Assessment Goals Seven Impairment sit to stand Short Term Goal (STG) Pt will complete 5 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 STG Duration 4 weeks - 06/27/21 Rn Intensive Care Unit Goal (LTG) Pt will complete 15 reps in 30 Second Sit to Stand Test without UE and without increase in baseline pain. 09/06/21: goal progress LTG Duration 11/06/21 Six Impairment low back pain Short Term Goal (STG) Pt will tolerate sitting 60 minutes to improve driving tolerance. Group Home Goal (LTG) Pt will tolerate kneeling 30 minutes at a time for zoila activities. 09/06/21: goal progress LTG Duration 11/06/21 Five Impairment balance Short Term Goal (STG) Pt will improve SLS to 30 seconds bilaterally STG Duration 4 weeks - 06/27/21 LTG Duration 11/06/21 Four Impairment left shoulder pain Short Term Goal (STG) Pt will improve left shoulder internal rotation ROM to L1 or higher (at midline) without increase in baseline pain. 09/06/21: pain still increases with internal rotation , reaching behind his back STG Duration 10/06/21 Rn Intensive Care Unit Goal (LTG) Pt will throw a ball or cast a fishing reel with left arm without increase in baseline pain for return to recreational activities. 09/06/21: no progress LTG Duration 11/06/21 Three Impairment QuickDASH Group Home Goal (LTG) Pt will improve QuickDASH from 30% impairment to 15% or less as a measure of improvement in daily activities. 09/05/21: 30%, had been making improvement but exacerbated today LTG Duration 11/06/21 Two Impairment ROM Rn Intensive Care Unit Goal (LTG) Pt will achieve active ROM of left shoulder equal to that of right shoulder for improvement in ADL performance . 09/05/21:goal progress but painful LTG Duration 10/16/21 One Impairment lacks HEP Short Term Goal (STG) Pt will be independent with HEP to support therapy services provided in clinic. STG Duration goal met Group Home Goal (LTG) Pt will be independent with HEP for postural education and pain management for left shoulder. 09/05/21: goal partially met, feel further progression would be helpful. Compliance variable. LTG Duration 10/16/21 Assessment Summary Assessment Most painful shoulder reaching out to side, shoulder abduction, lacking full flexion. Signs and symptoms consistent with rotator cuff impingment. 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 REviewed HEP, patient has been inconsistent in performance. Added GH inferior glides today and patient was then able to perform shoulder IR and ER without pain. Importance of alignment and performance of HEP, plus modification of his activity stressed. We discussed hold PT at this time for patient to follow-up with his physician, he will continue with HEP and let us know physician recommendations . Physical Therapy Plan Frequency and Duration Frequency of Treatment 4 PT visits Duration of Treatment 2 months Plan of Care Start Date 09/05/21 Plan of Care End Date 11/06/21 Therapeutic Interventions Therapeutic Interventions Balance Training,Gait Training ,Home Exercise Program,Joint Mobilizations,Manual Therapy, Neuromuscular Re-education, Patient/Caregiver Education, Self-Care/Home Management,Soft Tissue Mobilization,Taping, Therapeutic Activities, Therapeutic Exercises Modalities Cold Pack/Ice Massage,Electric Stimulation,Hot Packs Next Visit Focus/Plan Next Note Type Treatment Note Next Visit Plan Assess compliance and response to HEP, modification of activity, physician recommendations, and determine need for further PT Plan of Care Dates Plan of Care Start Date 09/05/21 Plan of Care End Date 11/06/21 Electronically Signed by: Marquita Crenshaw, PT 09/06/21 [id number] Please Sign and Return: I have reviewed this Plan of Care and certify that the skilled therapy services above are required to meet the patient?s needs. Physician Signature Date Printed Name and Credentials Clinical Instructor Signature Printed Name and Credentials
--- NOTE | 2021-09-06 16:54 | PT.OTRE ---
Current Diagnoses Other chronic pain (09/05/21) Pain in left shoulder (09/05/21) Abnormal posture (09/05/21) Visit Care Team Role Provider Type Jon Fu MD Attending Provider Non-Staff Primary Care Provider Referring Provider Specialty: Family Practice Address: [address] , [place], [address] Email: Physical Therapy Re-Evaluation PT-OP-A Visit Information Start: 05/30/21 12:36 Freq: Status: Active Protocol: Document 09/05/21 15:16 SAK (Rec: 09/05/21 15:39 SAK [id number]) Out-Patient Physical Therapy Visit Information Visit Information Visit Type Treatment Note Visit Start Time 15:17 Visit Stop Time 16:00 Total Visit Minutes 43 Visit Number 7 Evaluation Information Evaluation Date 05/30/21 PT-OP-B Current Condition Start: 05/30/21 12:36 Freq: Status: Active Protocol: Document 06/07/21 14:28 SAK (Rec: 06/07/21 15:16 SAK [id number]) Current Condition History of Current Condition History of Current Condition Russ reports low back pain for the past few months which is worse on the left side and seems fairly irritable to him. He wakes up in pain. Rest and ice help. 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 He is also here for left shoulder pain which has been bothering him for a while. He has history of right A/C separation which is visible but no longer causes him pain. Left shoulder pain has been disturbing his sleep. He hurts more on the back of his shoulder. He can not throw anything or cast a fishing line. He has been having trouble getting dressed since his shoulder hurts when his arm his behind his back. He denies trauma Treatment Goals Patient/Caregiver Goals Pt would like to be able to sleep on left side, to be able to throw a ball, to be able to cast a fishing line with left hand, and be able to dress himself with less pain. PT-OP-C Subjective Start: 05/30/21 12:36 Freq: Status: Active Protocol: Document 09/05/21 15:16 SAK (Rec: 09/05/21 15:39 [facility] [id number]) OP-PT Subjective Patient Comments Patient Comments Seeing orthopedist 09/27/21. STates did a big job recently with resulting increase in back and shoulder pain. Given ointment by doctor which helps some. NOt too bad in am, but pain inc with bending over to tie shoes. Couldn't tolerate doing his exercises. Certain moveme nts at job would light it up. Kinesiotape some helpful. PT-OP-D Balance Start: 05/30/21 12:36 Freq: Status: Active Protocol: Document 06/01/21 14:30 AW (Rec: 06/01/21 17:21 AW [email or web address]) Balance Tests Single Limb Standing Single Limb- Right 25 sec steady Single Limb- Left 20 sec unsteady PT-OP-F Manual Assessment Start: 05/30/21 12:36 Freq: Status: Active Protocol: Document 05/30/21 14:30 AW (Rec: 05/30/21 17:49 AW [email or web address]) Manual Assessments Soft Tissue Assessment Soft Tissue Mobility Assessment Moderate density and trigger points appreciable in left infraspinatus, teres minor. Increased density bilateral upper traps. Joint Mobility Assessment Joint Mobility Assessment Posterior and inferior GH glides similar side to side without appreciable restriction. PT-OP-J Posture/Palpation/Skin Start: 05/30/21 12:36 Freq: Status: Active Protocol: Document 06/01/21 14:30 AW (Rec: 06/01/21 17:21 AW [email or web address]) Posture Evaluation Position Sitting Evaluation View Lateral Head/C-Spine Posture Forward Head L-Spine Posture Increased Lordosis Shoulder Posture (L) Rounded,(R) Rounded Scapula Posture (L) Protracted,(R) Protracted Arm Posture (L) Internally Rotated,(R) Internally Rotated Pelvis Posture Anteriorly Tilted Weight Distribution Weight Shifted Right,Weight Shifted Posterior Palpation Assessment Location lumbar paraspinals Palpation Location lumbar paraspinals Palpation Findings Soft Tissue Tightness,Muscle Guarding,Tenderness Palpation Details right more affected than left PT-OP-K Range of Motion Start: 05/30/21 12:36 Freq: Status: Active Protocol: Document 06/01/21 14:30 AW (Rec: 06/01/21 17:21 AW [email or web address]) Lumbar Spine Range of Motion Lumbar Spine Active Degrees Testing Position Standing Flexion 55 Extension 13 Comments Positive Yohana's sign. Rotation WFL bilaterally. Increased pain with left rotation. Side bend with fingertips to knee joint bilaterally. PT-OP-L Special Tests Start: 05/30/21 12:36 Freq: Status: Active Protocol: Document 05/30/21 14:30 AW (Rec: 05/30/21 17:49 AW [email or web address]) Special Tests Cervical Spine Special Tests Spurling's Test Test Results negative bilaterally Shoulder Special Tests Cochran Kyle Impingement Test Results positive left Infraspinatus MMT Test Results positive left Comments Vague pain with resisted infraspinatus testing on left. No pain on right. Painful Arc Test Results postive left Comments Pain reproduced 80-110 degrees abduction Drop Arm Rotator Cuff Test Results pt able to hold position without pain PT-OP-M Strength Start: 05/30/21 12:36 Freq: Status: Active Protocol: Document 06/01/21 14:30 AW (Rec: 06/01/21 17:21 AW [email or web address]) Hip Strength Hip Manual Muscle Testing Left Flexion (L2) 4 Good Extension (S1) 4- Good- Abduction 4+ Good+ Adduction 4 Good External Rotation 4+ Good+ Internal Rotation 4+ Good+ Comments Pain with flexion and rotation . Right Flexion (L2) 4+ Good+ Extension (S1) 4 Good Abduction 4 Good Adduction 5 Normal External Rotation 5 Normal Internal Rotation 5 Normal Knee Strength Knee Manual Muscle Testing B Flexion (S2) 5 Normal Extension (L3) 5 Normal Ankle/Foot Strength Ankle and Foot Manual Muscle Testing B Dorsiflexion (L4) 5 Normal Plantarflexion (S1) 4+ Good+ PT-OP-Q Treatments Start: 05/30/21 12:36 Freq: Status: Active Protocol: Document 09/05/21 15:16 [facility] (Rec: 09/05/21 15:39 [facility] [id number]) Cardio Equipment Upper Body Ergometer (UBE) Duration (Minutes) 5 RPM 75 Seat Position 13 Height 2.5 Other forward and back Therapeutic Exercises Supine Exercises shoulder IR/ER Side left Comments after GH inf glid mob foam roll T/S ext Supine Exercise Name foam roll T/S ext Equipment Used half roll high density Comments arms crossed, deep breaths supine lower trap/posture press Supine Exercise Name supine lower trap/posture press Reps/Minutes 3SH x 10 scap protraction Supine Exercise Name scap protraction Side bilateral Resistance 5# Equipment Used db Reps/Minutes 2x15 Prone Exercises pendulum + row Prone Exercise Name scap retraction + GH extension Side left Resistance 5# Equipment Used db Reps/Minutes 2x10 scap retraction + GH extension Prone Exercise Name scap retraction + GH extension Side bilateral Resistance AROM Reps/Minutes 3SH x 10 Sidelying Exercises GH ER Sidelying Exercise Name GH ER Side left Resistance AROM Reps/Minutes 2x12 Comments cues for keeping elbow at side open book Sidelying Exercise Name open book Side bilateral Reps/Minutes x10 each side Comments pain-free range; deep breathing end range Sitting Exercises pulleys Sitting Exercise Name pulleys Side bilateral Reps/Minutes 4 min Comments flex, abd thoracic rotation Sitting Exercise Name thoracic rotation Side bilateral Reps/Minutes 2x10 UT stretch Sitting Exercise Name UT stretch Side bilateral Reps/Minutes 30 SH x 2 Comments cued posture, ear toward ceiling Manual Therapy Treatment Soft Tissue Mobilization upper traps, deltoid left Mobilization Type Myofascial Release Intensity/Depth Moderate Body Position Hooklying Joint Mobilizations GH Direction inf glide Grade II Body Position Hooklying Reps/Duration 3 min Taping left shoulder Body Location left shoulder Treatment Focus support, pain relief Type of Tape kinesiotape Skin Inspection intact Comments 3 Y strips 50-75% stretch Self-Care/Home Management Treatment Education Patient Education Home Exercise Program,Pain Management,Posture PT-OP-R Modalities Start: 05/30/21 12:36 Freq: Status: Active Protocol: Document 06/07/21 14:28 [facility] (Rec: 06/07/21 16:46 [facility] [id number]) Hot Pack/Cold Pack Treatment ice pack Location left shoulder Patient Position Hooklying PT-OP-T Assessment and Plan Start: 05/30/21 12:36 Freq: Status: Active Protocol: Document 09/05/21 15:16 [facility] (Rec: 09/05/21 15:39 [facility] [id number]) Physical Therapy Assessment Goals Seven Impairment sit to stand Short Term Goal (STG) 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 STG Duration 4 weeks - 06/27/21 Longterm Goal (LTG) Pt will complete 15 reps in 30 Second Sit to Stand Test without UE and without increase in baseline pain. 09/06/21: goal progress LTG Duration 11/06/21 Six Impairment low back pain Short Term Goal (STG) Pt will tolerate sitting 60 minutes to improve driving tolerance. Longterm Goal (LTG) Pt will tolerate kneeling 30 minutes at a time for zoila activities. 09/06/21: goal progress LTG Duration 11/06/21 Five Impairment balance Short Term Goal (STG) Pt will improve SLS to 30 seconds bilaterally STG Duration 4 weeks - 06/27/21 LTG Duration 11/06/21 Four Impairment left shoulder pain Short Term Goal (STG) Pt will improve left shoulder internal rotation ROM to L1 or higher (at midline) without increase in baseline pain. 09/06/21: pain still increases with internal rotation , reaching behind his back STG Duration 10/06/21 Longterm Goal (LTG) Pt will throw a ball or cast a fishing reel with left arm without increase in baseline pain for return to recreational activities. 09/06/21: no progress LTG Duration 11/06/21 Three Impairment QuickDASH Longterm Goal (LTG) Pt will improve QuickDASH from 30% impairment to 15% or less as a measure of improvement in daily activities. 09/05/21: 30%, had been making improvement but exacerbated today LTG Duration 11/06/21 Two Impairment ROM Longterm Goal (LTG) Pt will achieve active ROM of left shoulder equal to that of right shoulder for improvement in ADL performance . 09/05/21:goal progress but painful LTG Duration 10/16/21 One Impairment lacks HEP Short Term Goal (STG) Pt will be independent with HEP to support therapy services provided in clinic. STG Duration goal met Vertical Roll Operator Goal (LTG) Pt will be independent with HEP for postural education and pain management for left shoulder. 09/05/21: goal partially met, feel further progression would be helpful. Compliance variable. LTG Duration 10/16/21 Assessment Summary Assessment Most painful shoulder reaching out to side, shoulder abduction, lacking full flexion. Signs and symptoms consistent with rotator cuff impingment. 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 REviewed HEP, patient has been inconsistent in performance. Added GH inferior glides today and patient was then able to perform shoulder IR and ER without pain. Importance of alignment and performance of HEP, plus modification of his activity stressed. We discussed hold PT at this time for patient to follow-up with his physician, he will continue with HEP and let us know physician recommendations . Physical Therapy Plan Frequency and Duration Frequency of Treatment 4 PT visits Duration of Treatment 2 months Plan of Care Start Date 09/05/21 Plan of Care End Date 11/06/21 Therapeutic Interventions Therapeutic Interventions Balance Training,Gait Training ,Home Exercise Program,Joint Mobilizations,Manual Therapy, Neuromuscular Re-education, Patient/Caregiver Education, Self-Care/Home Management,Soft Tissue Mobilization,Taping, Therapeutic Activities, Therapeutic Exercises Modalities Cold Pack/Ice Massage,Electric Stimulation,Hot Packs Next Visit Focus/Plan Next Note Type Treatment Note Next Visit Plan Assess compliance and response to HEP, modification of activity, physician recommendations, and determine need for further PT
--- NOTE | 2022-09-06 11:37 | PT.OPDS ---
Current Diagnoses Other chronic pain (09/05/21) Pain in left shoulder (09/05/21) Abnormal posture (09/05/21) Visit Care Team Role Provider Type Jon Fu MD Attending Provider Non-Staff Primary Care Provider Referring Provider Specialty: Family Practice Address: [address] , [place], [address] Email: Visit Number Visit Number 7 Discharge Summary PT-OP-B Current Condition Start: 05/30/21 12:36 Freq: Status: Active Protocol: Document 06/07/21 14:28 SAK (Rec: 06/07/21 15:16 [facility] [id number]) Current Condition History of Current Condition History of Current Condition Russ reports low back pain for the past few months which is worse on the left side and seems fairly irritable to him. He wakes up in pain. Rest and ice help. 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 He is also here for left shoulder pain which has been bothering him for a while. He has history of right A/C separation which is visible but no longer causes him pain. Left shoulder pain has been disturbing his sleep. He hurts more on the back of his shoulder. He can not throw anything or cast a fishing line. He has been having trouble getting dressed since his shoulder hurts when his arm his behind his back. He denies trauma Treatment Goals Patient/Caregiver Goals Pt would like to be able to sleep on left side, to be able to throw a ball, to be able to cast a fishing line with left hand, and be able to dress himself with less pain. PT-OP-C Subjective Start: 05/30/21 12:36 Freq: Status: Active Protocol: Document 09/05/21 15:16 SAK (Rec: 09/05/21 15:39 [facility] [id number]) OP-PT Subjective Patient Comments Patient Comments Seeing orthopedist 09/27/21. STates did a big job recently with resulting increase in back and shoulder pain. Given ointment by doctor which helps some. NOt too bad in am, but pain inc with bending over to tie shoes. Couldn't tolerate doing his exercises. Certain moveme nts at job would light it up. Kinesiotape some helpful. PT-OP-D Balance Start: 05/30/21 12:36 Freq: Status: Active Protocol: Document 06/01/21 14:30 AW (Rec: 06/01/21 17:21 AW [email or web address]) Balance Tests Single Limb Standing Single Limb- Right 25 sec steady Single Limb- Left 20 sec unsteady PT-OP-F Manual Assessment Start: 05/30/21 12:36 Freq: Status: Active Protocol: Document 05/30/21 14:30 AW (Rec: 05/30/21 17:49 AW [email or web address]) Manual Assessments Soft Tissue Assessment Soft Tissue Mobility Assessment Moderate density and trigger points appreciable in left infraspinatus, teres minor. Increased density bilateral upper traps. Joint Mobility Assessment Joint Mobility Assessment Posterior and inferior GH glides similar side to side without appreciable restriction. PT-OP-J Posture/Palpation/Skin Start: 05/30/21 12:36 Freq: Status: Active Protocol: Document 06/01/21 14:30 AW (Rec: 06/01/21 17:21 AW [email or web address]) Posture Evaluation Position Sitting Evaluation View Lateral Head/C-Spine Posture Forward Head L-Spine Posture Increased Lordosis Shoulder Posture (L) Rounded,(R) Rounded Scapula Posture (L) Protracted,(R) Protracted Arm Posture (L) Internally Rotated,(R) Internally Rotated Pelvis Posture Anteriorly Tilted Weight Distribution Weight Shifted Right,Weight Shifted Posterior Palpation Assessment Location lumbar paraspinals Palpation Location lumbar paraspinals Palpation Findings Soft Tissue Tightness,Muscle Guarding,Tenderness Palpation Details right more affected than left PT-OP-K Range of Motion Start: 05/30/21 12:36 Freq: Status: Active Protocol: Document 06/01/21 14:30 AW (Rec: 06/01/21 17:21 AW [email or web address]) Lumbar Spine Range of Motion Lumbar Spine Active Degrees Testing Position Standing Flexion 55 Extension 13 Comments Positive Yohana's sign. Rotation WFL bilaterally. Increased pain with left rotation. Side bend with fingertips to knee joint bilaterally. PT-OP-L Special Tests Start: 05/30/21 12:36 Freq: Status: Active Protocol: Document 05/30/21 14:30 AW (Rec: 05/30/21 17:49 AW [email or web address]) Special Tests Cervical Spine Special Tests Spurling's Test Test Results negative bilaterally Shoulder Special Tests Cochran Kyle Impingement Test Results positive left Infraspinatus MMT Test Results positive left Comments Vague pain with resisted infraspinatus testing on left. No pain on right. Painful Arc Test Results postive left Comments Pain reproduced 80-110 degrees abduction Drop Arm Rotator Cuff Test Results pt able to hold position without pain PT-OP-M Strength Start: 05/30/21 12:36 Freq: Status: Active Protocol: Document 06/01/21 14:30 AW (Rec: 06/01/21 17:21 AW [email or web address]) Hip Strength Hip Manual Muscle Testing Left Flexion (L2) 4 Good Extension (S1) 4- Good- Abduction 4+ Good+ Adduction 4 Good External Rotation 4+ Good+ Internal Rotation 4+ Good+ Comments Pain with flexion and rotation . 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 STG Duration 4 weeks - 06/27/21 Finish Sander Goal (LTG) Pt will complete 15 reps in 30 Second Sit to Stand Test without UE and without increase in baseline pain. 09/06/21: goal progress LTG Duration 11/06/21 Six Impairment low back pain Short Term Goal (STG) Pt will tolerate sitting 60 minutes to improve driving tolerance. Alf Goal (LTG) Pt will tolerate kneeling 30 minutes at a time for [employer] activities. 09/06/21: goal progress LTG Duration 11/06/21 Five Impairment balance Short Term Goal (STG) Pt will improve SLS to 30 seconds bilaterally STG Duration 4 weeks - 06/27/21 LTG Duration 11/06/21 Four Impairment left shoulder pain Short Term Goal (STG) Pt will improve left shoulder internal rotation ROM to L1 or higher (at midline) without increase in baseline pain. 09/06/21: pain still increases with internal rotation , reaching behind his back STG Duration 10/06/21 Finish Sander Goal (LTG) Pt will throw a ball or cast a fishing reel with left arm without increase in baseline pain for return to recreational activities. 09/06/21: no progress LTG Duration 11/06/21 Three Impairment QuickDASH Finish Sander Goal (LTG) Pt will improve QuickDASH from 30% impairment to 15% or less as a measure of improvement in daily activities. 09/05/21: 30%, had been making improvement but exacerbated today LTG Duration 11/06/21 Two Impairment ROM Alf Goal (LTG) Pt will achieve active ROM of left shoulder equal to that of right shoulder for improvement in ADL performance . 09/05/21:goal progress but painful LTG Duration 10/16/21 One Impairment lacks HEP Short Term Goal (STG) Pt will be independent with HEP to support therapy services provided in clinic. STG Duration goal met Finish Sander Goal (LTG) Pt will be independent with HEP for postural education and pain management for left shoulder. 09/05/21: goal partially met, feel further progression would be helpful. Compliance variable. LTG Duration 10/16/21 Assessment Summary Assessment Most painful shoulder reaching out to side, shoulder abduction, lacking full flexion. Signs and symptoms consistent with rotator cuff impingment. 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 REviewed HEP, patient has been inconsistent in performance. Added GH inferior glides today and patient was then able to perform shoulder IR and ER without pain. Importance of alignment and performance of HEP, plus modification of his activity stressed. We discussed hold PT at this time for patient to follow-up with his physician, he will continue with HEP and let us know physician recommendations . Physical Therapy Plan Frequency and Duration Frequency of Treatment 4 PT visits Duration of Treatment 2 months Plan of Care Start Date 09/05/21 Plan of Care End Date 11/06/21 Therapeutic Interventions Therapeutic Interventions Balance Training,Gait Training ,Home Exercise Program,Joint Mobilizations,Manual Therapy, Neuromuscular Re-education, Patient/Caregiver Education, Self-Care/Home Management,Soft Tissue Mobilization,Taping, Therapeutic Activities, Therapeutic Exercises Modalities Cold Pack/Ice Massage,Electric Stimulation,Hot Packs Next Visit Focus/Plan Next Note Type Treatment Note Next Visit Plan Assess compliance and response to HEP, modification of activity, physician recommendations, and determine need for further PT
== END | disposition home or self-care (01) ==
LOC: PHYS 05-30 13:24
PROVIDERS: PCP Family Medicine; Referring Provider Family Medicine; Visit Provider Family Medicine
DX: M25.512 Pain in left shoulder (principal); G89.29 Other chronic pain; R29.3 Abnormal posture
CPT/HCPCS: 97110; 97140; 97161; 97530; 97535